=== PATIENT | male | born 1945 | race Caucasian/White ===

== ENCOUNTER 2023-08-02 14:05 | Outpatient (CLI) | payer OTHER, SELFPAY | END 2023-08-02 14:06 | disposition home or self-care (01) | LOC: AMB 08-03 18:45 | PROVIDERS: Visit Provider Emergency Medicine Emergency Medical Services | DX: L89.619 Pressure ulcer of right heel, unspecified stage (principal) | CPT/HCPCS: A0425; A0429 ==

== ENCOUNTER 2023-08-02 14:26 | Inpatient (IN) | payer OTHER, SELFPAY ==
[2023-08-02] VITALS (13 sets, daily range): BP systolic 108–136; BP diastolic 59–75; PULSE 64–83; RESP 16; TEMP 36.2–36.4; O2SAT 79–100; BMI 29.9
--- NOTE | 2023-08-02 17:27 | CRLHL7_ITS ---
For Patients: As a result of the Century Cures Act, medical imaging exams and procedure reports are released immediately into your electronic medical record. You may view this report before your referring provider. If you have questions, please contact your health care provider. Indication: Trauma. Technique: Right foot, 2 views. Comparison: None. Findings/Impression: Bones: Ill-defined lucency about the 5th digit metatarsal tarsal joint involving the metatarsal head and proximal phalangeal base, concerning for osteomyelitis. Joint spaces: Unremarkable. Soft tissues: Unremarkable. Dictated by Loco Zayas MD @ 08/02/2023 6:20:49 PM (Electronically Signed)
--- NOTE | 2023-08-02 17:35 | ED_ITS ---
HPI - General Adult General Date Seen: 08/02/23 Chief complaint: Laceration/Wound Stated complaint: Wound R foot Time Seen by Provider: 08/02/23 16:26 Source: EMS and other Mode of arrival: EMS Limitations: other (Dementia) History of Present Illness HPI narrative: Patient is a 77-year-old male with history of diabetes, CHF, hypertension, hypothyroidism, aphasia secondary to a cerebrovascular accident presenting to the emergency department for a diabetic foot ulcer. Patient was brought in by EMS. Patient is unable to give any clear history. When asked him what is wrong he says everything is fine. He does state he thinks is something wrong with this foot but can not give any further information than that. He was sent with a note from his provider josé miguel that they concerned about diabetic foot ulcer to his right foot and concern for osteomyelitis. He has been declining and due to living in assisted living the nursing staff are unable to complete skilled wound care and they cannot get home health care 10 mL to come in to provide wound management. He has also been refusing his showers. Was sent in for recommendation for evaluation of osteomyelitis and residential placement. Related Data Home Medications ?Medication ?Instructions ?Recorded ?Confirmed acetaminophen 500 mg tablet PO 08/02/23 allopurinol 100 mg tablet 100 mg PO DAILY 08/02/23 08/02/23 aspirin 81 mg chewable tablet 1 tab PO DAILY 08/02/23 08/02/23 atenolol 25 mg tablet 25 mg PO DAILY 08/02/23 08/02/23 baclofen 5 mg tablet 5 mg PO DAILY 08/02/23 08/02/23 blood sugar diagnostic (OneTouch 08/02/23 08/02/23 Ultra Test strips) gabapentin 100 mg capsule 200 mg PO BID 08/02/23 08/02/23 honey 80 % topical gel (MediHoney topical DIRECTED 08/02/23 (honey)) hydrocortisone 1 % topical cream applic topical 08/02/23 insulin glargine 100 unit/mL (3 2 unit subcut DAILY PRN 08/02/23 08/02/23 mL) subcutaneous pen (Lantus Solostar U-100 Insulin) lancets 28 gauge (Unistik 3 08/02/23 08/02/23 Comfort Lancet) levothyroxine 112 mcg tablet 112 mcg PO DAILY 12/26/23 12/26/23 metformin 500 mg tablet,extended 500 mg PO BID 08/02/23 08/02/23 release 24 hr non-adherent bandage 3 X 3 08/02/23 08/02/23 (Curity Non-Adhering Dressing) polyhexamethylene biguanide-gauze 08/02/23 08/02/23 bandage 0.2 %-4.5 X 4.1 yard (Kerlix AMD) simvastatin 10 mg tablet 10 mg PO QPM 08/02/23 08/02/23 Previous Rx's ?Medication ?Instructions ?Recorded Lactobacillus acidophilus 0.5 mg 1 mmu cells PO TIDWM 7 days #21 08/10/23 (100 million cell) tablet tabs acetaminophen 325 mg tablet 975 mg (3 x 325 mg) PO Q8H PRN #30 08/10/23 tabs ceftriaxone 2 gram solution for 2 g IVPB Q24H 7 days #10 ea 08/10/23 injection furosemide 40 mg tablet 40 mg PO DAILY #30 tabs 08/10/23 potassium chloride 10 mEq 20 meq (2 x 10 mEq) PO DAILY #30 08/10/23 capsule,extended release caps spironolactone 25 mg tablet 25 mg PO DAILY #30 tabs 08/10/23 Allergies Allergy/AdvReac Type Severity Reaction Status Date / Time Unable to Assess Allergy Unverified 08/02/23 14:38 Review of Systems Status of ROS: Reports: unobtainable due to mental status [facility] Medical History Hyperlipidemia ?E78.5 - Hyperlipidemia, unspecified (ICD-10) Peripheral edema ?R60.0 - Localized edema (ICD-10) Hypothyroidism ?E03.9 - Hypothyroidism, unspecified (ICD-10) Gout ?M10.9 - Gout, unspecified (ICD-10) 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 ?I69.351 - Hemiplegia and hemiparesis following cerebral infarction affecting right dominant side (ICD-10) GI bleed ?K92.2 - Gastrointestinal hemorrhage, unspecified (ICD-10) Type 2 diabetes mellitus ?E11.9 - Type 2 diabetes mellitus without complications (ICD-10) Chronic congestive heart failure ?I50.9 - Heart failure, unspecified (ICD-10) CVA (cerebral vascular accident) ?I63.9 - Cerebral infarction, unspecified (ICD-10) Hypertension ?I10 - Essential (primary) hypertension (ICD-10) Social History What is your current living situation?: I presently have a place to live Problems where you live: no known problems Problems where you live details: n/a In the past 12 months, utilities in danger of being shut off: no In past 12 months, lack of transportation kept you from medical appts, meetings, work, or getting things needed for daily living: no In the past 12 mos, have been you worried that your food would run out before you had money to buy more?: never true In the past 12 mos, the food you bought just didn't last and you didn't have money to buy more?: never true Smoking Status: Never smoker How often do you have a drink containing alcohol: never AUDIT-C Alcohol total score: 0 Non-prescribed substance use: denies use How often does anyone, including family, friends and others, physically hurt you : never How often does anyone, including family, friends and others, insult or talk down to you: never How often does anyone, including family, friends and others, threaten you with harm: never How often does anyone, including family, friends and others, scream or curse at you: never Exam Narrative: Exam Narrative: Const: Well-nourished, Well-developed, in mild distress Eyes: PERRL, no conjunctival injection, and symmetrical lids HENT: Atraumatic external nose and ears. Moist mucous membranes. Neck: Symmetric, trachea midline, No thyromegaly. CVS: RRR, No murmurs or gallops. Peripheral pulses 2+ and equal in all extremities RESP: Unlabored respiratory effort. Clear to auscultation bilaterally. GI: Nontender/Nondistended, No rebound or guarding. MSK:Extremities w/o deformity, Normal Active ROM FOOT: Left foot appears normal. Right foot has a diabetic foot ulcer at the ba se of the 5th meta tarsal appears deep. No surrounding erythema. Top of patient's foot is very swollen Skin: Warm, Dry. No rashes or lesions. Neuro: Normal Muscle tone, No focal neurological deficits. Psych: Awake, Alert, & Oriented to self only. Const: Vital Signs, click to edit/add: Vital Signs - 24 hr 08/02/23 14:35 08/02/23 17:59 08/02/23 18:00 Temperature 97.2 F L Pulse Rate 69 64 Pulse Rate [Pulse Oximeter] 83 Respiratory Rate 16 Blood Pressure Blood Pressure [Le ft Upper Arm] 113/59 L Pulse Oximetry 99 97 97 Oxygen Delivery Me thod Room Air 08/02/23 18:07 08/02/23 18:21 08/02/23 18:32 Temperature Pulse Rate 65 67 Pulse Rate [Pulse Oximeter] Respiratory Rate Blood Pressure 132/75 113/63 Blood Pressure [Le ft Upper Arm] Pulse Oximetry 99 100 Oxygen Delivery Me thod 08/02/23 18:51 08/02/23 19:01 08/02/23 19:19 Temperature Pulse Rate 64 Pulse Rate [Pulse Oximeter] Respiratory Rate Blood Pressure 108/70 Blood Pressure [Le ft Upper Arm] Pulse Oximetry 79 L 97 Oxygen Delivery Me thod Course Vital Signs Vital signs: Initial Vital Signs Temperature 97.2 F L 08/02/23 14:35 Temperature Source Temporal Artery Scan 08/02/23 14:35 Pulse Rate 83 08/02/23 14:35 Respiratory Rate 16 08/02/23 14:35 Blood Pressure 113/59 L 08/02/23 14:35 Blood Pressure Mean 77 08/02/23 14:35 Blood Pressure Position Sitting 08/02/23 14:35 Pulse Oximetry 99 08/02/23 14:35 Oxygen Delivery Method Room Air 08/02/23 14:35 Vital Signs Temperature 97.2 F L 08/02/23 14:35 Pulse Rate 83 08/02/23 14:35 Respiratory Rate 16 08/02/23 14:35 Blood Pressure 113/59 L 08/02/23 14:35 Pulse Oximetry 99 08/02/23 14:35 Oxygen Delivery Method Room Air 08/02/23 14:35 Temperature 98 F 08/10/23 11:07 Pulse Rate 75 08/10/23 11:07 Respiratory Rate 16 08/10/23 11:07 Blood Pressure 119/59 L 08/10/23 11:07 Pulse Oximetry 92 08/10/23 07:00 Oxygen Delivery Method Room Air 08/10/23 07:00 Oxygen Flow Rate 0 08/08/23 19:14 Medications Administered Medications: Discontinued Medications Generic Name Dose Route Start Last Admin Trade Name Michelle PRN Reason Stop Dose Admin Acetaminophen 650 - 975 mg 08/02/23 21:26 08/10/23 07:52 Acetaminophen 325 Mg Tablet PO 975 mg Q6H PRN Administration Allopurinol 100 mg 08/03/23 09:00 08/10/23 07:52 Allopurinol 100 Mg Tablet PO 100 mg DAILY KEN Administration Aspirin 81 mg 08/03/23 09:00 08/10/23 07:52 Aspirin 81 Mg Tab.Chew PO 81 mg DAILY KEN Administration Atenolol 25 mg 08/03/23 09:00 08/10/23 07:52 Atenolol 25 Mg Tablet PO 25 mg DAILY KEN Administration Baclofen 5 mg 08/03/23 09:00 08/10/23 07:51 Baclofen 10 Mg Tablet PO 5 mg DAILY KEN Administration Bupivacaine HCl 20 ml 08/03/23 17:34 08/03/23 17:34 Bupivacaine 0.5% 30 Ml INJECTION 08/03/23 17:35 20 ml ONCE ONE Administration Enoxaparin Sodium 40 mg 08/03/23 21:00 08/08/23 20:30 Enoxaparin 40 Mg/0.4 Ml Inj SUBCUT 40 mg HS KEN Administration Enoxaparin Sodium 30 mg 08/09/23 21:00 08/09/23 20:31 Enoxaparin 30 Mg/0.3ml Inj SUBCUT 30 mg HS KEN Administration Furosemide 40 mg 08/03/23 09:00 08/10/23 07:54 Furosemide 40 Mg Tablet PO 40 mg BID@09,16 KEN Administration Gabapentin 200 mg 08/03/23 09:00 08/10/23 07:53 Gabapentin 100 Mg Capsule PO 200 mg BID KEN Administration Vancomycin HCl 1,750 mg/ 517.5 mls @ 258.75 mls/hr 08/02/23 19:35 08/03/23 03:43 Sodium Chloride IVPB 08/02/23 19:36 Infused ONCE ONE Infusion Protocol Piperacillin Sod/Tazobactam 100 mls @ 200 mls/hr 08/02/23 19:35 08/02/23 20:59 Sod 3.375 gm/ Sodium Chloride IVPB 08/02/23 19:36 Infused ONCE ONE Infusion Vancomycin HCl 1,000 mg/ 260 mls @ 256.25 mls/hr 08/03/23 10:00 08/09/23 10:18 Sodium Chloride IVPB Infused Q12H KEN Infusion Protocol Piperacillin Sod/Tazobactam 100 mls @ 200 mls/hr 08/03/23 02:00 08/09/23 10:18 Sod 3.375 gm/ Sodium Chloride IVPB Infused Q6H KEN Infusion Lactated Ringer's 1,000 mls @ 125 mls/hr 08/03/23 08:55 08/06/23 10:52 Lactated Ringers 1000 Ml IV Not Given .Q8H KEN Ceftriaxone Sodium 2 gm/ 100 mls @ 200 mls/hr 08/09/23 09:15 08/10/23 10:04 Sodium Chloride IVPB Infused Q24H KEN Infusion Insulin Aspart 0 unit 08/03/23 08:00 08/10/23 07:55 Insulin Aspart 100 Unit/Ml SUBCUT 2 unit TIDWM KEN Administration Protocol Lactobacillus Acidophilus 1 tab 08/06/23 18:00 08/10/23 07:51 Lactobacillus Acidophilus 1 Tablet PO 1 tab TIDWM KEN Administration Levothyroxine Sodium 112 mcg 08/03/23 06:00 08/10/23 05:38 Levothyroxine 112 Mcg Tablet PO 112 mcg DAILY@0600 KEN Administration Lisinopril 20 mg 08/03/23 09:00 08/06/23 08:39 Lisinopril 20 Mg Tablet PO 20 mg DAILY KEN Administration Lisinopril 5 mg 08/07/23 09:00 08/09/23 08:11 Lisinopril 5 Mg Tablet PO 5 mg DAILY KEN Administration Metformin HCl 500 mg 08/04/23 18:00 08/10/23 07:51 Metformin Er 500 Mg PO 500 mg BIDWM KEN Administration Polyethylene Glycol 17 gm 08/02/23 21:26 08/03/23 20:59 Polyethylene Glycol 3350 17 Gm Pack PO 17 gm DAILY PRN Administration Potassium Chloride 20 meq 08/03/23 08:00 08/10/23 07:51 Potassium Chloride 10 Meq Capsule Er PO 20 meq BIDWM KEN Administration Senna/Docusate Sodium 1 tab 08/03/23 21:00 08/10/23 07:53 Sennosides/Docusate Tablet PO 1 tab BID KEN Administration Simvastatin 10 mg 08/03/23 18:00 08/09/23 17:23 Simvastatin 10 Mg Tablet PO 10 mg QPM KEN Administration Sodium Chloride 5 ml 08/02/23 21:26 08/10/23 05:40 Sodium Chloride 0.9 % (Flush) 10 Ml Syringe IVF 5 ml .FLUSH PRN Administration Sodium Chloride 5 ml 08/03/23 09:00 08/10/23 09:15 Sodium Chloride 0.9 % (Flush) 10 Ml Syringe IVF 5 ml BID KEN Administration Sodium Chloride 250 ml 08/04/23 13:45 08/04/23 13:54 0.9 % Sodium Chloride 250 Ml IV 250 ml Q24H KEN Administration Spironolactone 25 mg 08/03/23 09:00 08/10/23 07:53 Spironolactone 25 Mg Tablet PO 25 mg BID KEN Administration Trimethoprim/Sulfamethoxazole 1 tab 08/05/23 10:10 08/09/23 08:11 Sulfamethoxazole-Tmp Ds 800mg/160mg Tablet PO 1 tab BID KEN Administration Medical Decision Making MDM Narrative Medical decision making narrative: Patient is a 77-year-old male presenting to emergency department for concern of osteomyelitis. He appears to have altered mental status to and head CT was ordered but patient is refusing at this time. He does not know where ear is over he lives. I did speak to nursing staff at his assisted living and she says based on the records she is reading he has no history of cognitive issues. I spoke to 2 separate daughters also. One, the lives out of state, states he has dementia any other states he is not having any cognitive issues so this time I have no idea what his true baseline mental status is. I will do a CBC, CMP, ESR, CRP to look for signs of osteomyelitis. X-rays of the foot ordered. CBC returned with a white count over 12. He does not meet other SIRS criteria but with the concern for osteomyelitis we will order a lactate. X-ray returned showing concerns for osteomyelitis. ESR and CRP are both elevated which is also increases the concern for osteomyelitis. He was started on vanco and Zosyn. Blood cultures were done. Urinalysis is pending. I did order head CT for his altered mental status but he is refusing would not let us do it. At this time seems his confusion is more likely related to the infection rather than any intracranial issue. Patient admitted to the [facility] list service Lab Data Labs: Lab Results 08/02/23 08/02/23 Range/Units 18:09 19:50 WBC 12.48 H (4.50-11.00) K/uL RBC 3.98 L (4.30-5.90) m/uL Hgb 11.2 L (13.5-17.5) gm/dL Hct 34.5 L (37.0-53.0) % MCV 87 (80-100) fL MCH 28 (26-34) pg MCHC 33 (32-36) gm/dL RDW Coeff of Josafat 14.6 (11.5-15.5) % Plt Count 459 H (140-440) K/uL Neut % (Auto) 64.8 (42.0-72.0) % Lymph % (Auto) 25.2 (20-44) % [place] % (Auto) 7.0 (0.0-11.0) % Eos % (Auto) 2.5 (0.0-7.0) % Baso % (Auto) 0.3 (0.0-3.0) % Neut # (Auto) 8.10 H (1.7-7.0) K/uL Lymph # (Auto) 3.10 H (0.90-2.90) K/uL [place] # (Auto) 0.90 (0.00-0.90) K/UL Eos # (Auto) 0.30 (0.00-0.50) K/uL Baso # (Auto) 0.00 (0.00-0.30) K/uL Abs Immat Gran (auto) 0.00 (0.00-0.30) K/uL Imm/Tot Granulo (auto) 0.2 % ESR 72 H (2-15) mm/hr Sodium 135 (135-149) mmol/L Potassium 4.3 (3.6-5.1) mmol/L Chloride 98 (96-114) mmol/L Carbon Dioxide 27 (20-32) mmol/L Anion Gap 10 (7-15) mEq/L BUN 35 H (7-30) mg/dL Creatinine 0.9 (0.5-1.5) mg/dL Estimated GFR 87 ml/min Glucose 161 H (60-115) mg/dL Lactate 1.7 (0.5-1.9) mmol/L Calcium 9.3 (8.4-10.6) mg/dL Total Bilirubin 0.6 (0.1-1.5) mg/dL AST 23 (12-35) U/L ALT 17 (4-50) U/L Alkaline Phosphatase 110 (40-150) U/L C-Reactive Protein 2.5 H (0.5-1.0) mg/dL Total Protein 8.0 (6.0-8.3) g/dL Albumin 4.5 (3.3-5.0) g/dL Imaging Data Foot x-ray: Radiologist's impression: Bones: Ill-defined lucency about the 5th digit metatarsal tarsal joint involving the metatarsal head and proximal phalangeal base, concerning for osteomyelitis. Joint spaces: Unremarkable. Soft tissues: Unremarkable. Dictated by Loco Zayas MD @ 08/02/2023 6:20:49 PM ECG Data Attestation: I personally reviewed and interpreted this ECG as follows: Prior ECG tracings: not available for review Interpretation: Sinus rhythm with a rate 67 beats per minute. Appears there is a first-degree AV block, rest of intervals appear normal. Left axis, no ST or T-wave abnormalities Discharge Plan Discharge Clinical Impression: Osteomyelitis Patient Disposition: Admitted As Inpatient Condition: Stable Activity Level: Activity as Tolerated Discharge Diet: Diabetic
[2023-08-02 18:19] LABS: Basophils Percent Auto 0.3 % (0.0-3.0); Eosinophils Percent Auto 2.5 % (0.0-7.0); Hematocrit 34.5 % (37.0-53.0); Hemoglobin* 11.2 gm/dL (13.5-17.5); Immature Granulocytes Pct Auto 0.2 %; Lymphocytes Percent Auto 25.2 % (20-44); Mean Corpuscular HGB Conc 33 gm/dL (32-36); Mean Corpuscular Hemoglobin 28 pg (26-34); Mean Corpuscular Volume 87 fL (80-100); Neutrophils Percent Auto 64.8 % (42.0-72.0); Platelet Count* 459 K/uL (140-440); RDW Coefficient of Variation % 14.6 % (11.5-15.5); Red Blood Count 3.98 m/uL (4.30-5.90); White Blood Count* 12.48 K/uL (4.50-11.00)
[2023-08-02 18:25] LABS: Slide Review Reflex No
[2023-08-02 18:50] LABS: Albumin* 4.5 g/dL (3.3-5.0); Chloride* 98 mmol/L (96-114)
[2023-08-02 18:51] LABS: Potassium* 4.3 mmol/L (3.6-5.1); Sodium* 135 mmol/L (135-149)
[2023-08-02 18:53] LABS: Creatinine* 0.9 mg/dL (0.5-1.5); Estimated Glomerular Filt Rate 87 ml/min
[2023-08-02 18:54] LABS: Alanine Aminotransferase* 17 U/L (4-50); Alkaline Phosphatase* 110 U/L (40-150); Anion Gap 10 mEq/L (7-15); Aspartate Amino Transferase* 23 U/L (12-35); Bilirubin Total* 0.6 mg/dL (0.1-1.5); Blood Urea Nitrogen* 35 mg/dL (7-30); Calcium* 9.3 mg/dL (8.4-10.6); Carbon Dioxide* 27 mmol/L (20-32); Glucose* 161 mg/dL (60-115)
[2023-08-02 18:57] LABS: C Reactive Protein* 2.5 mg/dL (0.5-1.0)
[2023-08-02 19:40] LABS: Erythrocyte SedimentationRate* 72 mm/hr (2-15)
[2023-08-02 19:55] LABS: Lactate Sepsis w/Reflex* 1.7 mmol/L (0.5-1.9)
--- NOTE | 2023-08-02 20:12 | ED.NURSE ---
report given to MS, pt to room 258 after Meds started
[2023-08-02] MEDS: PIPERACILLIN/TAZOBACTAM 3.375 GM in 0.9 % SODIUM CHLORIDE Mini-bag 100 ML IVPB (20:15)
--- NOTE | 2023-08-02 20:36 | PM.IMHP1 ---
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 As patient is confused, mostly answering with yes or no, history is obtained from ED provider. Patient was brought to the ED from his residence in Assisted Living where nursing staff reported to be unable to complete skilled wound cares for a diabetic foot ulcer. Patient is reported to be declining at this residence and has been refusing showers. ED provider spoke with 2 of his daughters, one of them (living in [place]) reporting significant, worsening dementia the other reporting patient to be sharp as a tack. Review of Systems Narrative: REVIEW OF SYSTEMS: Complete review of systems performed and negative unless otherwise stated in HPI or below. 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 ?I69.351 - Hemiplegia and hemiparesis following cerebral infarction affecting right dominant side (ICD-10) GI bleed ?K92.2 - Gastrointestinal hemorrhage, unspecified (ICD-10) Type 2 diabetes mellitus ?E11.9 - Type 2 diabetes mellitus without complications (ICD-10) Chronic congestive heart failure ?I50.9 - Heart failure, unspecified (ICD-10) CVA (cerebral vascular accident) ?I63.9 - Cerebral infarction, unspecified (ICD-10) Hypertension ?I10 - Essential (primary) hypertension (ICD-10) Social History Smoking Status: Never smoker How often do you have a drink containing alcohol: never AUDIT-C Alcohol total score: 0 Meds Home Medications and Allergies Home Medications Medication Instructions Recorded Confirmed Type acetaminophen 500 mg tablet PO 08/02/23 History allopurinol 100 mg tablet 100 mg PO DAILY 08/02/23 08/02/23 History aspirin 81 mg chewable tablet 1 tab PO DAILY 08/02/23 08/02/23 History atenolol 25 mg tablet 25 mg PO DAILY 08/02/23 08/02/23 History baclofen 5 mg tablet 5 mg PO DAILY 08/02/23 08/02/23 History blood sugar diagnostic (OneTouch 08/02/23 08/02/23 History Ultra Test strips) furosemide 20 mg tablet 40 mg PO BID 08/02/23 08/02/23 History gabapentin 100 mg capsule 200 mg PO BID 08/02/23 08/02/23 History honey 80 % topical gel ([facility] topical DIRECTED 08/02/23 History (honey)) hydrocortisone 1 % topical cream applic topical 08/02/23 History insulin glargine 100 unit/mL (3 2 unit subcut DAILY PRN 08/02/23 08/02/23 History mL) subcutaneous pen (Lantus Solostar U-100 Insulin) lancets 28 gauge (Unistik 3 08/02/23 08/02/23 History Comfort Lancet) levothyroxine 112 mcg tablet 112 mcg PO DAILY 08/02/23 08/02/23 History lisinopril 20 mg tablet 20 mg PO DAILY 08/02/23 08/02/23 History metformin 500 mg tablet,extended 500 mg PO BID 08/02/23 08/02/23 History release 24 hr non-adherent bandage 3 X 3 08/02/23 08/02/23 History (Curity Non-Adhering Dressing) polyhexamethylene biguanide-gauze 08/02/23 08/02/23 History bandage 0.2 %-4.5 X 4.1 yard (Kerlix AMD) potassium chloride 20 mEq 20 meq PO BID 08/02/23 08/02/23 History tablet,extended release(part/cryst) simvastatin 10 mg tablet 10 mg PO QPM 08/02/23 08/02/23 History spironolactone 25 mg tablet 25 mg PO BID 08/02/23 08/02/23 History Allergies Allergy/AdvReac Type Severity Reaction Status Date / Time Unable to Assess Allergy Unverified 08/02/23 14:38 Exam Narrative: Exam Narrative: PHYSICAL EXAM General: Pleasantly confused, mostly cooperative, redirectable, otherwise NAD HEENT: Normocephalic, atraumatic, sclera white, EOMI, oral mucosa moist Cardiovascular: RRR, S1S2. No pitting edema Pulmonary: CTA bilaterally without rhonchi, rales, expiratory wheezes. No dyspnea on room air Abdominal: Soft, nondistended, NTTP Neurological: Alert, pleasantly confused. Right upper extremity hemiplegic, able to flex right hip to slightly raise foot Extremities: Right lower extremity with vascular changes, erythema, wound plantar surface 5th metatarsal - wound packing removed, purulent, malodorous. Left lower extremity digits with overgrowth of skin, some blackness Skin: Warm, dry. Const: Vital Signs, click to edit/add: Vital Signs - 24 hr 08/02/23 14:35 08/02/23 17:59 08/02/23 18:00 Temperature 97.2 F L Pulse Rate 69 64 Pulse Rate [Pulse Oximeter] 83 Respiratory Rate 16 Blood Pressure Blood Pressure [Le ft Upper Arm] 113/59 L Pulse Oximetry 99 97 97 Oxygen Delivery Me thod Room Air 08/02/23 18:07 08/02/23 18:21 08/02/23 18:32 Temperature Pulse Rate 65 67 Pulse Rate [Pulse Oximeter] Respiratory Rate Blood Pressure 132/75 113/63 Blood Pressure [Le ft Upper Arm] Pulse Oximetry 99 100 Oxygen Delivery Me thod 08/02/23 18:51 08/02/23 19:01 08/02/23 19:19 Temperature Pulse Rate 64 Pulse Rate [Pulse Oximeter] Respiratory Rate Blood Pressure 108/70 Blood Pressure [Le ft Upper Arm] Pulse Oximetry 79 L 97 Oxygen Delivery [facility] - [facility]: Result Labs Labs: Short CBC 08/02/23 Range/Units 18:09 WBC 12.48 H (4.50-11.00) K/uL Hgb 11.2 L (13.5-17.5) gm/dL Hct 34.5 L (37.0-53.0) % Plt Count 459 H (140-440) K/uL BMP 08/02/23 18:09 Sodium 135 Potassium 4.3 Chloride 98 Carbon Dioxide 27 BUN 35 H Creatinine 0.9 Glucose 161 H Calcium 9.3 Liver Function 12/26/23 Range/Units 18:09 Total Bilirubin 0.6 (0.1-1.5) mg/dL AST 23 (12-35) U/L ALT 17 (4-50) U/L Alkaline Phosphatase 110 (40-150) U/L Albumin 4.5 (3.3-5.0) g/dL Imaging Right foot: Attestation: I have reviewed the pertinent imaging results. Radiologist's impression: Right foot, 2 views. Comparison: None. Findings/Impression: Bones: Ill-defined lucency about the 5th digit metatarsal tarsal joint involving the metatarsal head and proximal phalangeal base, concerning for osteomyelitis. Joint spaces: Unremarkable. Soft tissues: Unremarkable. Assessment and Plan Assessment and plan (1) Osteomyelitis: Problem comment: -afebrile, vitally stable, leukocytosis with left shift, lactate 1.7, ESR and CRP elevated, BC x2 pending, lucency 5th metatarsal joint suspicious for osteomyelitis -continue vancomycin and Zosyn as initiated in ED -wound culture obtained and ordered -wound cares, frequent positional changes, offloading -Podiatry consult (made NPO after midnight, SCDs pending possible surgical intervention, no enoxaparin 08/02) -ID consult -PT/OT consults -Packing And Shipping Clerk for discharge planning/placement needs. Reported that current residence unable to provide necessary cares Status: Acute (2) Type 2 diabetes mellitus: Problem comment: -insulin-dependent -most recent A1c 7.3 (July) -hold metformin. Home medication record shows glargine 2 units daily p.r.n. (will need to confirm this) -diabetic diet, glucose checks ACHS, insulin sliding scale Status: Chronic (3) Chronic congestive heart failure: Problem comment: -continue furosemide, potassium chloride, monitor for fluid overload. No maintenance fluids ordered Status: Chronic (4) Hypertension: Problem comment: -continue atenolol, lisinopril, spironolactone. 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 Per ED provider, daughter in [place] reports significant dementia, worsening, while a 2nd daughter reports he is as sharp as a tack. Residence staff reports noncompliance with cares at facility -could be worsened in setting of acute infection -refused head CT in ED. Consider re-attempting if no change or worsening. No new focal findings -UA ordered -monitor for delirium -OT for cognitive assessment when appropriate Status: Chronic Plan CODE: DNR/DNI as reviewed in POLST 2019 VTE PPX: SCDs on admission pending possible surgical intervention Disposition: Inpatient, expect > 2 midnights. Will need assistance from social organization professor in finding appropriate placement
[2023-08-02 23:20] LABS: Appearance Urine Clear (Clear); Bilirubin Urine Negative (Negative); Blood Urine Negative (Negative); Color Urine Yellow (Yellow); Glucose Urine Negative (Negative); Ketones Urine Negative (Negative); Leukocyte Esterase Urine Negative (Negative); Nitrite Urine Negative (Negative); Protein Urine Negative (Negative); Specific Gravity Urine 1.015 (1.000-1.030); Urobilinogen Urine 0.2 (0.2-1.0)
[2023-08-03] VITALS (20 sets, daily range): BP systolic 95–130; BP diastolic 58–84; PULSE 59–85; RESP 16–18; TEMP 36.1–36.8; O2SAT 94–99
[2023-08-03 00:24] LABS: Amorphous Sediment Urine Moderate
[2023-08-03] MEDS: PIPERACILLIN/TAZOBACTAM 3.375 GM in 0.9 % SODIUM CHLORIDE Mini-bag 100 ML IVPB ×4 (02:14→20:09)
[2023-08-03] MEDS: LEVOTHYROXINE 112 MCG TABLET PO (06:26)
[2023-08-03 06:59] LABS: Basophils Percent Auto 0.3 % (0.0-3.0); Eosinophils Percent Auto 1.9 % (0.0-7.0); Hematocrit 33.7 % (37.0-53.0); Hemoglobin* 10.7 gm/dL (13.5-17.5); Immature Granulocytes Pct Auto 0.2 %; Lymphocytes Percent Auto 18.4 % (20-44); Mean Corpuscular HGB Conc 32 gm/dL (32-36); Mean Corpuscular Hemoglobin 28 pg (26-34); Mean Corpuscular Volume 88 fL (80-100); Monocytes Percent Auto 6.4 % (0.0-11.0); Neutrophils Percent Auto 72.8 % (42.0-72.0); Platelet Count* 397 K/uL (140-440); RDW Coefficient of Variation % 14.6 % (11.5-15.5); Red Blood Count 3.85 m/uL (4.30-5.90); White Blood Count* 11.77 K/uL (4.50-11.00)
--- NOTE | 2023-08-03 06:59 | PC.NURSE ---
pleasantly confused, oriented to person. Pt has Delayed responses & difficulty with word finding. Continent of bowel and bladder, uses urinal with assistance. A x 2 pivot to BSC. Pills with applesauce. Limited ROM in right arm, Pt states he uses a cane to ambulate at home. ? Wound to right foot weeping purulent drainage, foul odor, wound Cultures sent to lab. NPO since midnight. Tele = 1st degree HB w/ BBB?
[2023-08-03 07:17] LABS: Slide Review Reflex No
[2023-08-03 07:32] LABS: INR 1.03 (0.91-1.10); Prothrombin Time 14.2 Seconds
[2023-08-03 07:48] LABS: Magnesium* 1.8 mg/dL (1.5-2.6)
[2023-08-03 07:51] LABS: C Reactive Protein* 2.2 mg/dL (0.5-1.0)
[2023-08-03 07:56] LABS: Erythrocyte SedimentationRate* 83 mm/hr (2-15)
[2023-08-03] MEDS: POTASSIUM CHLORIDE 10 MEQ CAPSULE ER 20 MEQ PO (09:27)
[2023-08-03] MEDS: LACTATED RINGERS 1000 ML 1,000 ML 125 ML IV (09:28)
[2023-08-03] MEDS: ASPIRIN 81 MG TAB.CHEW PO (09:28)
[2023-08-03] MEDS: allopurinoL 100 MG TABLET PO (09:28)
[2023-08-03] MEDS: atenoloL 25 MG TABLET PO (09:29)
[2023-08-03] MEDS: BACLOFEN 10 MG TABLET 5 MG PO (09:29)
[2023-08-03] MEDS: GABAPENTIN 100 MG CAPSULE 200 MG PO ×2 (09:30→20:59)
[2023-08-03] MEDS: FUROSEMIDE 40 MG TABLET PO ×2 (09:30→16:12)
[2023-08-03] MEDS: lisinopriL 20 MG TABLET PO (09:30)
[2023-08-03] MEDS: SPIRONOLACTONE 25 MG TABLET PO ×2 (09:31→20:59)
--- NOTE | 2023-08-03 12:10 | CRLHL7_ITS ---
For Patients: As a result of the Century Cures Act, medical imaging exams and procedure reports are released immediately into your electronic medical record. You may view this report before your referring provider. If you have questions, please contact your health care provider. INDICATION: Abdominal tenderness. TECHNIQUE: CT abdomen and pelvis acquired with 102 cc Isovue 370 IV contrast. COMPARISON: June 05, 2021. FINDINGS: Lower chest: Scattered atelectasis. Liver: Unremarkable. Normal in size and attenuation. No suspicious masses. Gallbladder and bile ducts: Mildly distended gallbladder with cholelithiasis. Pancreas: Unremarkable. No mass or inflammation. Spleen: Scattered splenic granulomas. Normal in size. No masses. Adrenal glands: Tiny bilateral adrenal nodules. Kidneys: Bilateral renal cysts. Additional hypodensities, too small to characterize no suspicious masses, stones, or hydronephrosis. GI tract: Moderate colonic stool burden. Normal in caliber. No sign of mass or inflammation. Normal appendix. Vasculature: Moderate aortoiliac arterial calcifications. Abdominal aorta is normal in caliber. Mesenteric arteries are patent. Lymph nodes: No lymphadenopathy. Peritoneum/Abdominal Wall: Unremarkable. No sign of mass or infiltration. No free air or significant free fluid. Pelvis: Prostatomegaly. Moderately distended bladder. Bones: Unremarkable for age. IMPRESSION: 1. No acute intra-abdominal/pelvic abnormality. 2. Mildly distended gallbladder with cholelithiasis, but without other CT evidence of acute cholecystitis. Recommend correlation with localized physical examination and laboratory values. 3. Moderate colonic stool burden. 4. Prostatomegaly. Please note that all CT scans at this facility use dose modulation, iterative reconstruction, and/or weight-based dosing when appropriate to reduce radiation dose to as low as reasonably achievable. Dictated by Loco Zayas MD @ 08/03/2023 1:48:16 PM (Electronically Signed)
--- NOTE | 2023-08-03 12:49 | PM.PODCN1 ---
HPI - Podiatry Data of Consult Date Seen: 08/03/23 Consult date: 08/03/23 Requesting physician: Jennifer Corona MD Primary care provider: Not a Local Provider Consult Narrative Reason for consult: Osteomyelitis right foot Narrative: Chris Puri is a 77 year old male who resides in assisted living admitted yesterday with worsening foot pain and wound. Pleasant gentleman with daughter present. He states he has been doing some standing on the foot but does not recall any significant walking. He has had difficulty with the foot since stroke. H and P reviewed. 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 As patient is confused, mostly answering with yes or no, history is obtained from ED provider. Patient was brought to the ED from his residence in Assisted Living where nursing staff reported to be unable to complete skilled wound cares for a diabetic foot ulcer. Patient is reported to be declining at this residence and has been refusing showers. 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 ?I69.351 - Hemiplegia and hemiparesis following cerebral infarction affecting right dominant side (ICD-10) GI bleed ?K92.2 - Gastrointestinal hemorrhage, unspecified (ICD-10) Type 2 diabetes mellitus ?E11.9 - Type 2 diabetes mellitus without complications (ICD-10) Chronic congestive heart failure ?I50.9 - Heart failure, unspecified (ICD-10) CVA (cerebral vascular accident) ?I63.9 - Cerebral infarction, unspecified (ICD-10) Hypertension ?I10 - Essential (primary) hypertension (ICD-10) Social History What is your current living situation?: I presently have a place to live Problems where you live: no known problems Problems where you live details: n/a In the past 12 months, utilities in danger of being shut off: no In past 12 months, lack of transportation kept you from medical appts, meetings, work, or getting things needed for daily living: no In the past 12 mos, have been you worried that your food would run out before you had money to buy more?: never true In the past 12 mos, the food you bought just didn't last and you didn't have money to buy more?: never true Smoking Status: Never smoker How often do you have a drink containing alcohol: never AUDIT-C Alcohol total score: 0 Non-prescribed substance use: denies use How often does anyone, including family, friends and others, physically hurt you: never How often does anyone, including family, friends and others, insult or talk down to you: never How often does anyone, including family, friends and others, threaten you with harm: never How often does anyone, including family, friends and others, scream or curse at you: never Exam Narrative: Exam Narrative: General: No distress resting comfortably. Vascular: Palpable dorsalis pedis and posterior tibial pulses. There are faint. Capillary fill time was 3 seconds all digits. Neuro: Insensate to light touch right lower extremity. Derm: Mild venous stasis changes to the right lower extremity. Mild edema. Chronic appearing erythema to the foot and lower leg. Open ulceration measuring 2 cm plantar 5th metatarsal head with exposed bone. There is extensive necrotic tissue and necrotic bone. No purulence. Wound does not probe down fascial tracks. Musculoskeletal: Right foot equinovarus position. Absent muscle strength with dorsiflexion and eversion. X-ray: Erosions and destruction of the 5th metatarsal head and proximal phalangeal base right foot. Consistent with osteomyelitis. Lab: ESR 83, CRP 2.2, WBC 11.77 with left shift Wound culture: Gram-positive cocci and Gram-negative rods Assessment: Osteomyelitis 5th metatarsal and 5th toe right foot, diabetic neuropathic ulceration with infection Plan: I reviewed the current situation with Chris and his daughter. Because of the severe infection of the bone I recommend surgical intervention this evening. We will proceed with incision draining of the foot with amputation of the 5th toe and partial resection of the 5th metatarsal. We may or may not close the wound depending on the appearance of the remaining tissue. I reviewed the procedure, recovery, expectations and potential complications. He is understanding and wishes to proceed with surgery. Const: Vital Signs, click to edit/add: Vital Signs - 24 hr 08/02/23 14:35 08/02/23 17:59 08/02/23 18:00 Temperature 97.2 F L Pulse Rate 69 64 Pulse Rate [Pulse Oximeter] 83 Respiratory Rate 16 Blood Pressure Blood Pressure [Le ft Arm] Blood Pressure [Le ft Upper Arm] 113/59 L Pulse Oximetry 99 97 97 Oxygen Delivery Me thod Room Air 08/02/23 18:07 08/02/23 18:21 08/02/23 18:32 Temperature Pulse Rate 65 67 Pulse Rate [Pulse Oximeter] Respiratory Rate Blood Pressure 132/75 113/63 Blood Pressure [Le ft Arm] Blood Pressure [Le ft Upper Arm] Pulse Oximetry 99 100 Oxygen Delivery Me thod 08/02/23 18:51 08/02/23 19:01 08/02/23 19:19 Temperature Pulse Rate 64 Pulse Rate [Pulse Oximeter] Respiratory Rate Blood Pressure 108/70 Blood Pressure [Le ft Arm] Blood Pressure [Le ft Upper Arm] Pulse Oximetry 79 L 97 Oxygen Delivery Me thod 08/02/23 21:28 08/02/23 21:37 08/02/23 21:37 Temperature 97.6 F Pulse Rate Pulse Rate [Pulse Oximeter] 68 Respiratory Rate 16 16 16 Blood Pressure Blood Pressure [Le ft Arm] 136/70 Blood Pressure [Le ft Upper Arm] Pulse Oximetry 99 99 99 Oxygen Delivery Me thod Room Air Room Air Room Air 08/02/23 22:00 08/02/23 23:00 08/03/23 02:49 Temperature 98 F Pulse Rate 71 Pulse Rate [Pulse Oximeter] 77 Respiratory Rate 16 18 Blood Pressure Blood Pressure [Le ft Arm] 130/84 Blood Pressure [Le ft Upper Arm] Pulse Oximetry 97 Oxygen Delivery Me thod Room Air 08/03/23 07:00 08/03/23 07:50 08/03/23 11:05 Temperature 98.2 F 98.3 F Pulse Rate Pulse Rate [Pulse Oximeter] 85 85 74 Respiratory Rate 18 18 18 Blood Pressure Blood Pressure [Le ft Arm] 121/73 109/66 Blood Pressure [Le ft Upper Arm] Pulse Oximetry 99 97 Oxygen Delivery Me thod Room Air Room Air 08/03/23 12:04 Temperature Pulse Rate 71 Pulse Rate [Pulse Oximeter] Respiratory Rate Blood Pressure Blood Pressure [Le ft Arm] Blood Pressure [Le ft Upper Arm] Pulse Oximetry Oxygen Delivery Me thod Nail Debridement Qualifies If: Qualifiers If:: A patient qualifies for nail debridement if they have: 1 class A finding (Q7) 2 class B findings (Q8) OR 1 class B & 2 class C findings in addition to a primary condition (Q9)
[2023-08-03 14:40] LABS: PCR FLU A Negative PCR FLU A (Negative); PCR FLU B Negative PCR FLU B (Negative); PCR RSV Negative PCR RSV (Negative)
[2023-08-03 14:47] LABS: SARS PCR* Negative SARS-CoV-2 (Negative)
--- NOTE | 2023-08-03 14:48 | P.IMPN_ITS ---
Progress Note: A&P Assessment and plan (1) Osteomyelitis: Problem details: -afebrile, vitally stable, leukocytosis with left shift, lactate 1.7, ESR and CRP elevated, BC x2 pending, lucency 5th metatarsal joint suspicious for osteomyelitis -continue vancomycin and Zosyn as initiated in ED -wound culture obtained and ordered -wound cares, frequent positional changes, offloading -Podiatry consult (made NPO after midnight, SCDs pending possible surgical intervention, no enoxaparin 08/02) -ID consult -PT/OT consults -Poultry Veterinarian for discharge planning/placement needs. Reported that current residence unable to provide necessary cares Status: Acute (2) Hypertension: Problem details: -continue atenolol, lisinopril, spironolactone. Creatinine 0.9 Status: Chronic (3) Chronic congestive heart failure: Problem details: -continue furosemide, potassium chloride, monitor for fluid overload. No m aintenance fluids ordered Status: Chronic (4) Type 2 diabetes mellitus: Problem details: -insulin-dependent -most recent A1c 7.3 (July) -hold metformin. Home medication record shows glargine 2 units daily p.r.n. 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 Per ED provider, daughter in [place] reports significant dementia, worsening, while a 2nd daughter reports he is as sharp as a tack. Residence staff reports noncompliance with cares at facility -could be worsened in setting of acute infection -refused head CT in ED. Consider re-attempting if no change or worsening. No new focal findings -UA ordered -monitor for delirium -OT for cognitive assessment when appropriate Status: Chronic (10) Abdominal tenderness: Problem details: CT abdomen is unremarkable except for presence of gallstones without obvious cholecystitis. Continue to monitor and reexamine. Obtain ultrasound and repeat LFTs if ongoing concern about cholecystitis Status: Acute Plan Patient is admitted to the hospital for surgical management of osteomyelitis in the foot along with antibiotics. Awaiting cultures. Consultation with Dr. Chandra. Plan is to go to the OR later today for amputation of the 5th ray and 5th toe on the right. Time Spent With Patient Total time spent: Total time spent today is 55 minutes, 40 minutes in coordination of care discussing with patient other providers ongoing management of osteomyelitis and diabetes and disability and cognitive impairment Subjective Date Seen: 08/03/23 Interval history: 77-year-old male with diabetes mellitus and prior stroke with right michael paresis admitted to the hospital with a draining wound on his right foot. Patient is unable to give significant history due to cognitive impairment. History is mostly obtained from the medical record. His daughter is present but also unable to give much additional history. Duration of the wound on the plantar surface of his right 5th MTP joint is unknown. Radiographically this appears to have significant degeneration of the bone in that area suggesting chronicity. Patient had a stroke at least 30 years ago causing right hemiparesis. Is a sequelae of that he has some internal rotation and inversion of that right foot. 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 In the emergency department radiographs show marked degenerative changes of the head of the 5th metatarsal at the MTP joint consistent with osteomyelitis and the plantar surface ulcer consistent with that as well. He was started on vancomycin and Zosyn. Wound cultures are pending. Exam Narrative: Exam Narrative: He is alert and appears in no distress he is not oriented to his circumstances. He intermittently answers questions appropriately a but other times struggles with both word-finding and also struggles with giving appropriate answers. Speech is fluent but with some trouble with word finding. Respirations are fernando r to auscultation. Cardiovascular: S1, S2, regular rate and rhythm. Abdomen: Bowel sounds are present. Abdomen is soft with diffuse abdominal tenderness. I come back 30 minutes later to reexamine him any continues to have diffuse abdominal tenderness. I palpate no mass there is no peritonitis. Extremities: He has flexion contractures of the right upper extremity with limited passive motion and no at active motion of his right upper extremity. Right lower extremity foot with some inversion and internal rotation of the foot. No marked erythema. Mild edema. Foot is warm to touch. There is a 2 cm diameter ulcer on the plantar surface of the 5th MTP which probes to bone. He reports he has poor sensation in that right foot. No marked surrounding erythema. Left lower extremity is relatively normal. Const: Vital Signs, click to edit/add: Vital Signs - 24 hr 08/02/23 17:59 08/02/23 18:00 08/02/23 18:07 Temperature Pulse Rate 69 64 65 Pulse Rate [Pulse Oximeter] Respiratory Rate Blood Pressure 132/75 Blood Pressure [Le ft Arm] Blood Pressure [Ri ght Arm] Pulse Oximetry 97 97 99 Oxygen Delivery Me thod Oxygen Flow Rate 08/02/23 18:21 08/02/23 18:32 08/02/23 18:51 Temperature Pulse Rate 67 Pulse Rate [Pulse Oximeter] Respiratory Rate Blood Pressure 113/63 Blood Pressure [Le ft Arm] Blood Pressure [Ri ght Arm] Pulse Oximetry 100 79 L Oxygen Delivery Me thod Oxygen Flow Rate 08/02/23 19:01 08/02/23 19:19 08/02/23 21:28 Temperature Pulse Rate 64 Pulse Rate [Pulse Oximeter] Respiratory Rate 16 Blood Pressure 108/70 Blood Pressure [Le ft Arm] Blood Pressure [Ri ght Arm] Pulse Oximetry 97 99 Oxygen Delivery Me thod Room Air Oxygen Flow Rate 08/02/23 21:37 08/02/23 21:37 08/02/23 22:00 Temperature 97.6 F Pulse Rate 71 Pulse Rate [Pulse Oximeter] 68 Respiratory Rate 16 16 Blood Pressure Blood Pressure [Le ft Arm] 136/70 Blood Pressure [Ri ght Arm] Pulse Oximetry 99 99 Oxygen Delivery Me thod Room Air Room Air Oxygen Flow Rate 08/02/23 23:00 08/03/23 02:49 08/03/23 07:00 Temperature 98 F Pulse Rate Pulse Rate [Pulse Oximeter] 77 85 Respiratory Rate 16 18 18 Blood Pressure Blood Pressure [Le ft Arm] 130/84 Blood Pressure [Ri ght Arm] Pulse Oximetry 97 Oxygen Delivery Me thod Room Air Oxygen Flow Rate 08/03/23 07:50 08/03/23 11:05 08/03/23 12:04 Temperature 98.2 F 98.3 F Pulse Rate 71 Pulse Rate [Pulse Oximeter] 85 74 Respiratory Rate 18 18 Blood Pressure Blood Pressure [Le ft Arm] 121/73 109/66 Blood Pressure [Ri ght Arm] Pulse Oximetry 99 97 Oxygen Delivery Me thod Room Air Room Air Oxygen Flow Rate 08/03/23 14:30 Temperature 97.1 F L Pulse Rate 75 Pulse Rate [Pulse Oximeter] Respiratory Rate 16 Blood Pressure Blood Pressure [Le ft Arm] Blood Pressure [Ri ght Arm] 95/61 Pulse Oximetry Oxygen Delivery Me thod Nasal Cannula Oxygen Flow Rate 3 Documenting provider has reviewed patient's vital signs: yes Labs Labs: Laboratory Results - last 24 hr 08/02/23 08/02/23 08/02/23 18:09 19:50 22:55 WBC 12.48 H RBC 3.98 L Hgb 11.2 L Hct 34.5 L MCV 87 MCH 28 MCHC 33 RDW Coeff of Josafat 14.6 Plt Count 459 H Neut % (Auto) 64.8 Lymph % (Auto) 25.2 [place] % (Auto) 7.0 Eos % (Auto) 2.5 Baso % (Auto) 0.3 Neut # (Auto) 8.10 H Lymph # (Auto) 3.10 H [place] # (Auto) 0.90 Eos # (Auto) 0.30 Baso # (Auto) 0.00 Abs Immat Gran (auto) 0.00 Imm/Tot Granulo (auto) 0.2 ESR 72 H INR Sodium 135 Potassium 4.3 Chloride 98 Carbon Dioxide 27 Anion Gap 10 BUN 35 H Creatinine 0.9 Estimated GFR 87 Glucose 161 H Lactate 1.7 Calcium 9.3 Magnesium Total Bilirubin 0.6 AST 23 ALT 17 Alkaline Phosphatase 110 C-Reactive Protein 2.5 H Total Protein 8.0 Albumin 4.5 TSH Urine Color Yellow Urine Appearance Clear Urine pH 7.0 Ur Specific [place] 1.015 Urine Protein Negative Urine Glucose (UA) Negative Urine Ketones Negative Urine Blood Negative Urine Nitrite Negative Urine Bilirubin Negative Urine Urobilinogen 0.2 Ur Leukocyte Esterase Negative Urine RBC 2-5 A Urine WBC 2-5 Ur Squamous Epith Cells None Amorphous Sediment Moderate A Urine Bacteria None SARS-CoV-2 (PCR) Influenza Type A (PCR) Influenza Type B (PCR) RSV (PCR) 08/03/23 08/03/23 05:46 13:50 WBC 11.77 H RBC 3.85 L Hgb 10.7 L Hct 33.7 L MCV 88 MCH 28 MCHC 32 RDW Coeff of Josafat 14.6 Plt Count 397 Neut % (Auto) 72.8 H Lymph % (Auto) 18.4 L [place] % (Auto) 6.4 Eos % (Auto) 1.9 Baso % (Auto) 0.3 Neut # (Auto) 8.60 H Lymph # (Auto) 2.20 [place] # (Auto) 0.80 Eos # (Auto) 0.20 Baso # (Auto) 0.00 Abs Immat Gran (auto) 0.00 Imm/Tot Granulo (auto) 0.2 ESR 83 H INR 1.03 Sodium Potassium Chloride Carbon Dioxide Anion Gap BUN Creatinine Estimated GFR Glucose Lactate Calcium Magnesium 1.8 Total Bilirubin AST ALT Alkaline Phosphatase C-Reactive Protein 2.2 H Total Protein Albumin TSH 1.300 Urine Color Urine Appearance Urine pH Ur Specific [place] Urine Protein Urine Glucose (UA) Urine Ketones Urine Blood Urine Nitrite Urine Bilirubin Urine Urobilinogen Ur Leukocyte Esterase Urine RBC Urine WBC Ur Squamous Epith Cells Amorphous Sediment Urine Bacteria SARS-CoV-2 (PCR) Negative SARS-CoV-2 Influenza Type A (PCR) Negative PCR FLU A Influenza Type B (PCR) Negative PCR FLU B RSV (PCR) Negative PCR RSV
--- NOTE | 2023-08-03 17:20 | P.PODPN_ITS ---
Podiatry-PN: Michael Subjective Time Seen by Provider: 17:20 Date Seen: 08/03/23 Interval history: [employer] spoke with daughter who is the guardian of the patient about potential complications of anesthesia. She requests that the DNI/DNR remain in place no matter what happens during surgery. I am comfortable she understands the implications. He will remain DNI/DNR during the surgery. Exam Const: Vital Signs, click to edit/add: Vital Signs - 24 hr 08/02/23 17:59 08/02/23 18:00 08/02/23 18:07 Temperature Pulse Rate 69 64 65 Pulse Rate [Pulse Oximeter] Respiratory Rate Blood Pressure 132/75 Blood Pressure [Le ft Arm] Blood Pressure [Ri ght Arm] Pulse Oximetry 97 97 99 Oxygen Delivery Me thod Oxygen Flow Rate 08/02/23 18:21 08/02/23 18:32 08/02/23 18:51 Temperature Pulse Rate 67 Pulse Rate [Pulse Oximeter] Respiratory Rate Blood Pressure 113/63 Blood Pressure [Le ft Arm] Blood Pressure [Ri ght Arm] Pulse Oximetry 100 79 L Oxygen Delivery Me thod Oxygen Flow Rate 08/02/23 19:01 08/02/23 19:19 08/02/23 21:28 Temperature Pulse Rate 64 Pulse Rate [Pulse Oximeter] Respiratory Rate 16 Blood Pressure 108/70 Blood Pressure [Le ft Arm] Blood Pressure [Ri ght Arm] Pulse Oximetry 97 99 Oxygen Delivery Me thod Room Air Oxygen Flow Rate 08/02/23 21:37 08/02/23 21:37 08/02/23 22:00 Temperature 97.6 F Pulse Rate 71 Pulse Rate [Pulse Oximeter] 68 Respiratory Rate 16 16 Blood Pressure Blood Pressure [Le ft Arm] 136/70 Blood Pressure [Ri ght Arm] Pulse Oximetry 99 99 Oxygen Delivery Me thod Room Air Room Air Oxygen Flow Rate 08/02/23 23:00 08/03/23 02:49 08/03/23 07:00 Temperature 98 F Pulse Rate Pulse Rate [Pulse Oximeter] 77 85 Respiratory Rate 16 18 18 Blood Pressure Blood Pressure [Le ft Arm] 130/84 Blood Pressure [Ri ght Arm] Pulse Oximetry 97 Oxygen Delivery Me thod Room Air Oxygen Flow Rate 08/03/23 07:50 08/03/23 11:05 08/03/23 12:04 Temperature 98.2 F 98.3 F Pulse Rate 71 Pulse Rate [Pulse Oximeter] 85 74 Respiratory Rate 18 18 Blood Pressure Blood Pressure [Le ft Arm] 121/73 109/66 Blood Pressure [Ri ght Arm] Pulse Oximetry 99 97 Oxygen Delivery Me thod Room Air Room Air Oxygen Flow Rate 08/03/23 14:30 08/03/23 15:00 08/03/23 16:16 Temperature 97.1 F L 98.0 F Pulse Rate 75 Pulse Rate [Pulse Oximeter] 64 64 Respiratory Rate 16 16 16 Blood Pressure Blood Pressure [Le ft Arm] 117/66 Blood Pressure [Ri ght Arm] 95/61 Pulse Oximetry 99 Oxygen Delivery Me thod Nasal Cannula Room Air Oxygen Flow Rate 3 08/03/23 16:28 Temperature Pulse Rate 75 Pulse Rate [Pulse Oximeter] Respiratory Rate Blood Pressure Blood Pressure [Le ft Arm] Blood Pressure [Ri ght Arm] Pulse Oximetry Oxygen Delivery Me thod Oxygen Flow Rate Podiatry-PN: Obj Labs Labs: Laboratory Results - last 24 hr 08/02/23 08/02/23 08/02/23 18:09 19:50 22:55 WBC 12.48 H RBC 3.98 L Hgb 11.2 L Hct 34.5 L MCV 87 MCH 28 MCHC 33 RDW Coeff of Josafat 14.6 Plt Count 459 H Neut % (Auto) 64.8 Lymph % (Auto) 25.2 [place] % (Auto) 7.0 Eos % (Auto) 2.5 Baso % (Auto) 0.3 Neut # (Auto) 8.10 H Lymph # (Auto) 3.10 H [place] # (Auto) 0.90 Eos # (Auto) 0.30 Baso # (Auto) 0.00 Abs Immat Gran (auto) 0.00 Imm/Tot Granulo (auto) 0.2 ESR 72 H INR Sodium 135 Potassium 4.3 Chloride 98 Carbon Dioxide 27 Anion Gap 10 BUN 35 H Creatinine 0.9 Estimated GFR 87 Glucose 161 H Lactate 1.7 Calcium 9.3 Magnesium Total Bilirubin 0.6 AST 23 ALT 17 Alkaline Phosphatase 110 C-Reactive Protein 2.5 H Total Protein 8.0 Albumin 4.5 TSH Urine Color Yellow Urine Appearance Clear Urine pH 7.0 Ur Specific [place] 1.015 Urine Protein Negative Urine Glucose (UA) Negative Urine Ketones Negative Urine Blood Negative Urine Nitrite Negative Urine Bilirubin Negative Urine Urobilinogen 0.2 Ur Leukocyte Esterase Negative Urine RBC 2-5 A Urine WBC 2-5 Ur Squamous Epith Cells None Amorphous Sediment Moderate A Urine Bacteria None SARS-CoV-2 (PCR) Influenza Type A (PCR) Influenza Type B (PCR) RSV (PCR) 08/03/23 08/03/23 05:46 13:50 WBC 11.77 H RBC 3.85 L Hgb 10.7 L Hct 33.7 L MCV 88 MCH 28 MCHC 32 RDW Coeff of Josafat 14.6 Plt Count 397 Neut % (Auto) 72.8 H Lymph % (Auto) 18.4 L [place] % (Auto) 6.4 Eos % (Auto) 1.9 Baso % (Auto) 0.3 Neut # (Auto) 8.60 H Lymph # (Auto) 2.20 [place] # (Auto) 0.80 Eos # (Auto) 0.20 Baso # (Auto) 0.00 Abs Immat Gran (auto) 0.00 Imm/Tot Granulo (auto) 0.2 ESR 83 H INR 1.03 Sodium Potassium Chloride Carbon Dioxide Anion Gap BUN Creatinine Estimated GFR Glucose Lactate Calcium Magnesium 1.8 Total Bilirubin AST ALT Alkaline Phosphatase C-Reactive Protein 2.2 H Total Protein Albumin TSH 1.300 Urine Color Urine Appearance Urine pH Ur Specific [place] Urine Protein Urine Glucose (UA) Urine Ketones Urine Blood Urine Nitrite Urine Bilirubin Urine Urobilinogen Ur Leukocyte Esterase Urine RBC Urine WBC Ur Squamous Epith Cells Amorphous Sediment Urine Bacteria SARS-CoV-2 (PCR) Negative SARS-CoV-2 Influenza Type A (PCR) Negative PCR FLU A Influenza Type B (PCR) Negative PCR FLU B RSV (PCR) Negative PCR RSV
[2023-08-03] MEDS: BUPIVACAINE 0.5% 30 ML 20 ML INJECTION (17:34)
--- NOTE | 2023-08-03 18:30 | PM.ONB ---
Brief Operative Note Date of procedure: 08/03/23 Pre-op diagnosis: Osteomyelitis 5th ray right foot Post-op diagnosis: same Anesthesia: MAC and local Surgeon: Bobo Chandra Estimated blood loss (mL): 5 Pathology: specimen obtained, sent to pathology Condition: stable Disposition: floor
--- NOTE | 2023-08-03 18:38 | W.ANESCHARGE ---
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
--- NOTE | 2023-08-03 19:37 | PC.NURSE ---
Shift note [id number]: Pt has had no verbal or nonverbal complaints of pain. Wound to bottom of R foot was evaluated by Dr. Chandra and pt was prepped for surgery continuing on NPO diet. IV fluids running per current orders in place. Dressing to R foot noted to be C/D/I before pt was taken to surgery. VSS and pt has been afebrile. Pt noted to be both continent and incontinent of bladder and has been using bedside urinal and bedpan for toileting this shift. Pt pivot transferred with assist of 2 using GB though was noted to be heavy pivot transfer. 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 He is unable to state his name and birthday when asked though when staff read his birthday and asked pt if this was his birthday he replied, ?Yes?. Daughter Cherelle gave consent for surgery due to patient?s baseline dementia/aphasia. Pt returned from surgery at 1830 and is tolerating ice chips.?VSS and afebrile since returning from surgery.
[2023-08-03] MEDS: ENOXAPARIN 40 MG/0.4 ML INJ SUBCUT (20:59)
[2023-08-03] MEDS: polyethylene glycoL 3350 17 GM PACK PO (20:59)
[2023-08-03] MEDS: SENNOSIDES/DOCUSATE TABLET 1 TAB PO (21:56)
[2023-08-03 21:57] LABS: Chloride* 103 mmol/L (96-114); Potassium* 3.8 mmol/L (3.6-5.1); Sodium* 135 mmol/L (135-149)
[2023-08-03 22:00] LABS: Anion Gap 9 mEq/L (7-15); Blood Urea Nitrogen* 18 mg/dL (7-30); Carbon Dioxide* 23 mmol/L (20-32); Creatinine* 0.8 mg/dL (0.5-1.5); Est. Creatinine Clearance* 61.85; Estimated Glomerular Filt Rate 90 ml/min; Glucose* 214 mg/dL (60-115)
[2023-08-03 22:01] LABS: Calcium* 8.8 mg/dL (8.4-10.6)
[2023-08-04] VITALS (11 sets, daily range): BP systolic 97–126; BP diastolic 53–80; PULSE 67–90; RESP 14–20; TEMP 36.6–37.7; O2SAT 94–97; BMI 30.5
[2023-08-04] MEDS: PIPERACILLIN/TAZOBACTAM 3.375 GM in 0.9 % SODIUM CHLORIDE Mini-bag 100 ML IVPB ×4 (02:12→20:17)
[2023-08-04] MEDS: LACTATED RINGERS 1000 ML 1,000 ML 125 ML IV ×3 (05:06→16:52)
--- NOTE | 2023-08-04 05:46 | PC.NURSE ---
End of shift report: Patient alert, unable to verify name or date of due to aphasia from prior stroke. Patient is able to answer simple yes/no questions and is able to point to things he needs. Denies any pain this shift. Dressing to right foot clean, dry and intact. Right lower extremity elevated on pillow. Ate small amount of soft foods, patient declined dinner tray but was agreeable to small snacks. Able to use call light appropriately. Patient was continent of bladder and bowel.
[2023-08-04] MEDS: LEVOTHYROXINE 112 MCG TABLET PO (06:06)
[2023-08-04 07:04] LABS: Basophils Absolute Auto 0.03 K/uL (0.00-0.30); Basophils Percent Auto 0.3 % (0.0-3.0); Eosinophils Absolute Auto 0.22 K/uL (0.00-0.50); Eosinophils Percent Auto 2.4 % (0.0-7.0); Hematocrit 34.8 % (37.0-53.0); Hemoglobin* 11.1 gm/dL (13.5-17.5); Immature Granulocytes Abs Auto 0.04 K/uL (0.00-0.30); Immature Granulocytes Pct Auto 0.4 %; Mean Corpuscular HGB Conc 32 gm/dL (32-36); Mean Corpuscular Hemoglobin 28 pg (26-34); Mean Corpuscular Volume 87 fL (80-100); Monocytes Percent Auto 7.1 % (0.0-11.0); Neutrophils Percent Auto 77.8 % (42.0-72.0); Platelet Count* 379 K/uL (140-440); RDW Coefficient of Variation % 14.7 % (11.5-15.5); Red Blood Count 3.98 m/uL (4.30-5.90); White Blood Count* 9.17 K/uL (4.50-11.00)
[2023-08-04 07:21] LABS: Chloride* 103 mmol/L (96-114); Potassium* 4.3 mmol/L (3.6-5.1); Sodium* 136 mmol/L (135-149)
[2023-08-04 07:23] LABS: Creatinine* 0.8 mg/dL (0.5-1.5); Est. Creatinine Clearance* 61.85; Estimated Glomerular Filt Rate 90 ml/min
[2023-08-04 07:24] LABS: Anion Gap 10 mEq/L (7-15); Blood Urea Nitrogen* 15 mg/dL (7-30); Calcium* 8.7 mg/dL (8.4-10.6); Carbon Dioxide* 23 mmol/L (20-32); Glucose* 147 mg/dL (60-115)
[2023-08-04 07:27] LABS: C Reactive Protein* 3.1 mg/dL (0.5-1.0)
[2023-08-04 07:37] LABS: Slide Review Reflex No
[2023-08-04] MEDS: POTASSIUM CHLORIDE 10 MEQ CAPSULE ER 20 MEQ PO ×2 (08:57→18:09)
[2023-08-04] MEDS: atenoloL 25 MG TABLET PO (09:01)
[2023-08-04] MEDS: allopurinoL 100 MG TABLET PO (09:01)
[2023-08-04] MEDS: ASPIRIN 81 MG TAB.CHEW PO (09:01)
[2023-08-04] MEDS: BACLOFEN 10 MG TABLET 5 MG PO (09:02)
[2023-08-04] MEDS: FUROSEMIDE 40 MG TABLET PO ×2 (09:03→16:30)
[2023-08-04] MEDS: lisinopriL 20 MG TABLET PO (09:03)
[2023-08-04] MEDS: GABAPENTIN 100 MG CAPSULE 200 MG PO ×2 (09:03→21:21)
[2023-08-04] MEDS: SPIRONOLACTONE 25 MG TABLET PO ×2 (09:04→21:22)
[2023-08-04] MEDS: INSULIN ASPART 100 UNIT/ML SUBCUT ×2 (11:50→18:05)
[2023-08-04] MEDS: 0.9 % SODIUM CHLORIDE 250 ml IV (13:54)
--- NOTE | 2023-08-04 14:07 | P.IMPN_ITS ---
Progress Note: A&P Assessment and plan (1) Osteomyelitis: Problem details: Status post right 5th ray amputation for osteomyelitis of the right 5th metatarsal performed by Dr. Chandra 08/03/2023 On vancomycin and Zosyn pending cultures and clinical course Nonweightbearing on right lower extremity. Right hemiparesis from prior stroke Likely need longterm home placement for rehab instead of returning to assisted living at [facility] Status: Acute (2) Hypertension: Problem details: -continue atenolol, lisinopril, spironolactone. Creatinine 0.9 Status: Chronic (3) Chronic congestive heart failure: Problem details: -continue furosemide, potassium chloride, monitor for fluid overload. No maintenance fluids ordered Status: Chronic (4) Type 2 diabetes mellitus: Problem details: -insulin-dependent -most recent A1c 7.3 (July) -hold metformin. Home medication record shows glargine 2 units daily p.r.n. 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 No apparent agitation. Ongoing assessment. Status: Chronic (10) Abdominal tenderness: Problem details: CT abdomen is unremarkable except for presence of gallstones without obvious cholecystitis. Continue to monitor and reexamine. Obtain ultrasound and repeat LFTs if ongoing concern about cholecystitis Status: Acute Plan Continue in hospital for IV antibiotics and wound care. Time Spent With Patient Total time spent: Total time spent today is 40 minutes, 30 minutes in coordination of care and discussing with other providers management of osteomyelitis and disposition Subjective Date Seen: 08/04/23 Interval history: 77-year-old male with diabetes mellitus and prior stroke with right michael paresis admitted to the hospital with a draining wound on his right foot. Patient is unable to give significant history due to cognitive impairment. History is mostly obtained from the medical record. His daughter is present but also unable to give much additional history. Duration of the wound on the plantar surface of his right 5th MTP joint is unknown. Radiographically this appears to have significant degeneration of the bone in that area suggesting chronicity. Patient had a stroke at least 30 years ago causing right hemiparesis. Is a sequelae of that he has some internal rotation and inversion of that right foot. 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 In the emergency department radiographs show marked degenerative changes of the head of the 5th metatarsal at the MTP joint consistent with osteomyelitis and the plantar surface ulcer consistent with that as well. He was started on vancomycin and Zosyn. Wound cultures are pending. Gram stain shows Gram- negative rods and Gram-positive cocci. Yesterday he underwent amputation of his right 5th ray and 5th toe. He reports no concerns today. He is not oriented to his circumstances. Does not recall having surgery or why he is in the hospital. He denies pain dyspnea nausea. Exam Narrative: Exam Narrative: He is alert pleasant and appears in no distress. Respirations are clear to auscultation. Cardiovascular: S1, S2, regular rate and rhythm. Abdomen: Bowel sounds active. Abdomen is soft with mild diffuse tenderness again noted today. No mass. Right lower extremity is wrapped in a bulky dressing. He has no sensation in his right lower leg Const: Vital Signs, click to edit/add: Vital Signs - 24 hr 08/03/23 14:30 08/03/23 15:00 08/03/23 16:16 Temperature 97.1 F L 98.0 F Pulse Rate 75 Pulse Rate [Pulse Oximeter] 64 64 Respiratory Rate 16 16 16 Blood Pressure [Le ft Arm] 117/66 Blood Pressure [Ri ght Arm] 95/61 Pulse Oximetry 99 Oxygen Delivery Me thod Nasal Cannula Room Air Oxygen Flow Rate 3 08/03/23 16:28 08/03/23 18:30 08/03/23 18:45 Temperature 97.1 F L 97.1 F L Pulse Rate 75 61 Pulse Rate [Pulse Oximeter] 59 L Respiratory Rate 16 16 Blood Pressure [Le ft Arm] Blood Pressure [Ri ght Arm] 105/58 L 120/64 Pulse Oximetry 99 Oxygen Delivery Me thod Room Air Room Air Oxygen Flow Rate 08/03/23 19:00 08/03/23 19:15 08/03/23 19:30 Temperature 97.2 F L 97.3 F L 97.5 F L Pulse Rate Pulse Rate [Pulse Oximeter] 72 60 62 Respiratory Rate 16 16 16 Blood Pressure [Le ft Arm] Blood Pressure [Ri ght Arm] 116/62 122/71 118/68 Pulse Oximetry 98 98 95 Oxygen Delivery Me thod Room Air Room Air Room Air Oxygen Flow Rate 3 08/03/23 20:00 08/03/23 20:30 08/03/23 21:30 Temperature 96.9 F L 97.8 F 97.1 F L Pulse Rate Pulse Rate [Pulse Oximeter] 63 69 66 Respiratory Rate 18 16 16 Blood Pressure [Le ft Arm] Blood Pressure [Ri ght Arm] 118/63 112/78 117/63 Pulse Oximetry 99 98 96 Oxygen Delivery Me thod Room Air Room Air Room Air Oxygen Flow Rate 08/03/23 22:30 08/03/23 23:00 08/03/23 23:00 Temperature 97.2 F L Pulse Rate 73 Pulse Rate [Pulse Oximeter] 69 75 Respiratory Rate 16 Blood Pressure [Le ft Arm] Blood Pressure [Ri ght Arm] 119/63 Pulse Oximetry 94 Oxygen Delivery Me thod Room Air Oxygen Flow Rate 08/03/23 23:30 08/04/23 00:30 08/04/23 03:00 Temperature 97.9 F 97.9 F 98.4 F Pulse Rate Pulse Rate [Pulse Oximeter] 75 80 70 Respiratory Rate 16 15 14 Blood Pressure [Le ft Arm] Blood Pressure [Ri ght Arm] 120/60 113/59 L 121/53 L Pulse Oximetry 96 97 94 Oxygen Delivery Me thod Room Air Room Air Room Air Oxygen Flow Rate 08/04/23 07:20 08/04/23 07:30 08/04/23 10:19 Temperature 99.4 F Pulse Rate 84 Pulse Rate [Pulse Oximeter] 83 83 Respiratory Rate 20 20 Blood Pressure [Le ft Arm] 117/66 Blood Pressure [Ri ght Arm] 115/66 Pulse Oximetry 95 Oxygen Delivery Me thod Room Air Oxygen Flow Rate 08/04/23 11:31 Temperature 97.9 F Pulse Rate Pulse Rate [Pulse Oximeter] 89 Respiratory Rate 16 Blood Pressure [Le ft Arm] Blood Pressure [Ri ght Arm] 126/80 Pulse Oximetry 97 Oxygen Delivery Me thod Room Air Oxygen Flow Rate Documenting provider has reviewed patient's vital signs: yes Labs Labs: Laboratory Results - last 24 hr 08/03/23 08/03/23 08/04/23 13:50 21:38 05:48 WBC 9.17 RBC 3.98 L Hgb 11.1 L Hct 34.8 L MCV 87 MCH 28 MCHC 32 RDW Coeff of Josafat 14.7 Plt Count 379 Neut % (Auto) 77.8 H Lymph % (Auto) 12.0 L [place] % (Auto) 7.1 Eos % (Auto) 2.4 Baso % (Auto) 0.3 Neut # (Auto) 7.10 H Lymph # (Auto) 1.10 [place] # (Auto) 0.70 Eos # (Auto) 0.22 Baso # (Auto) 0.03 Abs Immat Gran (auto) 0.04 Imm/Tot Granulo (auto) 0.4 Sodium 135 136 Potassium 3.8 4.3 Chloride 103 103 Carbon Dioxide 23 23 Anion Gap 9 10 BUN 18 15 Creatinine 0.8 0.8 Estimated Creat Clear 61.85 61.85 Estimated GFR 90 90 Glucose 214 H 147 H Calcium 8.8 8.7 C-Reactive Protein 3.1 H SARS-CoV-2 (PCR) Negative SARS-CoV-2 Influenza Type A (PCR) Negative PCR FLU A Influenza Type B (PCR) Negative PCR FLU B RSV (PCR) Negative PCR RSV
--- NOTE | 2023-08-04 14:33 | PC.SOCIAL ---
Addendum entered by CHELSEA Haney 08/04/23 14:59: Pt has a [facility] Professional Architect, Ivon Reyna, and her phone number is [phone]. Provided update on pt. Professional Architect will e-mail a list of [facility] preferred TCU list to this worker's e-mail. Informed that family is requesting [facility]. Professional Architect would like to be updated on discharge plans. Original Note: Discharge planning- Phone call to pt's daughter, Cherelle Perez, at [phone] to discuss discharge plans. Per therapy, recommendation is SNF for rehab. Pt is non-weight bearing status at this time. Discussed recommendations with pt's dtr. Pt's daughter informs that pt currently lives at [facility], but she was informed that they are not able to meet pt's needs with the wound care. Pt's daughter is hopeful that pt can go to [facility]. If pt is unable to go to [facility] pt's daughter informs that her next choices would be [place] or [place]. Pt's daughter is open to [place], but hopes a first choice would accept him. Provided contact information for social work if family should have any questions. Social work will keep family updated on discharge plans. E-mail to Miranda Vázquez in admissions at [facility] to see if they have openings. Miranda informs that they will have an opening on Tuesday and requests that this worker send a referral. Secure e-mailed referral to Miranda at [facility] so they can assess. Social work will follow up as needed.
--- NOTE | 2023-08-04 17:08 | PM.PROC ---
Procedure Note Date Seen: 08/03/23 Date of procedure: 08/03/23 Will [facility] bill your pro fee for this procedure?: No Pre-op diagnosis: Osteomyelitis 5th ray right foot Post-op diagnosis: same Procedure: 1. Partial 5th ray amputation with 2. Rotational flap closure right foot Procedure Description: Hemostasis: Ankle tourniquet 250 mm Hg Complications: None apparent Indication for surgery: Patient seen for inpatient consultation with osteomyelitis 5th ray. He has a diabetic ulceration with exposed bone and extensive necrosis. Surgical intervention is warranted. I reviewed the procedure with the patient and his daughter. I discussed the procedure, recovery, expectations potential complications. These include but not limited to: Poor wound healing, continued infection, potential need for future surgery, potential limb loss, potential loss of life. All questions answered and consent was obtained. Site marked. Procedure in detail: Patient brought the operating room placed supine position on operating table. IV sedation initiated. Local anesthetic injected into the right foot. He was prepped and draped in a sterile fashion. Standard time-out protocol followed. The right foot was exsanguinated the tourniquet inflated. Linear incision started proximal to the open wound on the lateral plantar 5th metatarsal. Incision started mostly lateral and then angled plantarly. One arm of the incision then went inferior to the open wound and the other more superior. The incisions converged distally and then brought up toward the plantar 5th toe. Incision then diverged again going dorsal and plantar around the base the toe. This allowed me to raise a large 5 cm x 3 cm flap dorsally the 5th toe was disarticulated at the 5th MPJ and removed in total. The necrotic metatarsal head was excised. Surrounding necrotic subcutaneous tissue excised. Fifth metatarsal shaft was exposed. Using a sagittal saw the distal 5th metatarsal shaft was transected and sent to pathology. A 2 mm clear margin was cut proximal and sent for pathology. Portions of the necrotic metatarsal head were sent for culture and sensitivity. All necrotic tissue from the wound was extensively debrided. Wound was thoroughly irrigated with normal sterile saline. A dorsally based flap was further raised. Tourniquet was released and all bleeding vessels cauterized. The flap was then rotated plantar and slightly proximal to cover the large 2 cm ulceration site. Multiple retention sutures with 3-0 nylon were used. The distal 5th toe amputation site was remodeled due to the rotation of the flap. This was closed with 3-0 nylon as well. Sterile dressing was applied. He was transferred from [place] to [facility] with vital signs stable and vascular status intact to right foot. continued IV antibiotics. He is nonweightbearing. Anesthesia: MAC and local Surgeon: Bobo CHAVEZ Estimated blood loss (mL): 5 Pathology: specimen obtained, sent to pathology Condition: stable Disposition: floor
--- NOTE | 2023-08-04 17:17 | W.PM.PODPN ---
Podiatry-PN: Subj Subjective Date Seen: 08/04/23 Interval history: 77-year-old male with diabetes mellitus and prior stroke with right michael paresis admitted to the hospital with a draining wound on his right foot. He was started on vancomycin and Zosyn. Wound cultures are pending. Gram stain shows Gram-negative rods and Gram-positive cocci. Yesterday he underwent amputation of his right 5th ray and 5th toe. He reports no concerns today. He is not oriented to his circumstances. Does not recall having surgery or why he is in the hospital. He denies pain dyspnea nausea. Exam Narrative: Exam Narrative: Dressing is clean dry and intact. Incision is healing well. There is no areas of dehiscence. No area of maceration. Sutures intact. No active bleeding. Erythema and edema are much improved. No tenderness with palpation. Assessment: Postop day one partial 5th ray resection with rotational flap closure, osteomyelitis 5th metatarsal right Plan: Continue IV antibiotics. Continue nonweightbearing. Sterile dressing change performed. Const: Vital Signs, click to edit/add: Vital Signs - 24 hr 08/03/23 18:30 08/03/23 18:45 08/03/23 19:00 Temperature 97.1 F L 97.1 F L 97.2 F L Pulse Rate 61 Pulse Rate [Pulse Oximeter] 59 L 72 Respiratory Rate 16 16 16 Blood Pressure [Le ft Arm] Blood Pressure [Ri ght Arm] 105/58 L 120/64 116/62 Pulse Oximetry 99 98 Oxygen Delivery Me thod Room Air Room Air Room Air Oxygen Flow Rate 3 08/03/23 19:15 08/03/23 19:30 08/03/23 20:00 Temperature 97.3 F L 97.5 F L 96.9 F L Pulse Rate Pulse Rate [Pulse Oximeter] 60 62 63 Respiratory Rate 16 16 18 Blood Pressure [Le ft Arm] Blood Pressure [Ri ght Arm] 122/71 118/68 118/63 Pulse Oximetry 98 95 99 Oxygen Delivery Me thod Room Air Room Air Room Air Oxygen Flow Rate 08/03/23 20:30 08/03/23 21:30 08/03/23 22:30 Temperature 97.8 F 97.1 F L 97.2 F L Pulse Rate Pulse Rate [Pulse Oximeter] 69 66 69 Respiratory Rate 16 16 16 Blood Pressure [Le ft Arm] Blood Pressure [Ri ght Arm] 112/78 117/63 119/63 Pulse Oximetry 98 96 94 Oxygen Delivery Me thod Room Air Room Air Room Air Oxygen Flow Rate 08/03/23 23:00 08/03/23 23:00 08/03/23 23:30 Temperature 97.9 F Pulse Rate 73 Pulse Rate [Pulse Oximeter] 75 75 Respiratory Rate 16 Blood Pressure [Le ft Arm] Blood Pressure [Ri ght Arm] 120/60 Pulse Oximetry 96 Oxygen Delivery Me thod Room Air Oxygen Flow Rate 08/04/23 00:30 08/04/23 03:00 08/04/23 07:20 Temperature 97.9 F 98.4 F 99.4 F Pulse Rate Pulse Rate [Pulse Oximeter] 80 70 83 Respiratory Rate 15 14 20 Blood Pressure [Le ft Arm] 117/66 Blood Pressure [Ri ght Arm] 113/59 L 121/53 L 115/66 Pulse Oximetry 97 94 95 Oxygen Delivery Me thod Room Air Room Air Room Air Oxygen Flow Rate 08/04/23 07:30 08/04/23 10:19 08/04/23 11:31 Temperature 97.9 F Pulse Rate 84 Pulse Rate [Pulse Oximeter] 83 89 Respiratory Rate 20 16 Blood Pressure [Le ft Arm] Blood Pressure [Ri ght Arm] 126/80 Pulse Oximetry 97 Oxygen Delivery Me thod Room Air Oxygen Flow Rate 08/04/23 15:00 08/04/23 15:00 08/04/23 15:17 Temperature 98.9 F Pulse Rate 85 Pulse Rate [Pulse Oximeter] 90 90 Respiratory Rate 18 18 Blood Pressure [Le ft Arm] Blood Pressure [Ri ght Arm] 121/66 Pulse Oximetry 96 Oxygen Delivery Me thod Room Air Oxygen Flow Rate Podiatry-PN: Obj Labs Labs: Laboratory Results - last 24 hr 08/03/23 08/04/23 21:38 05:48 WBC 9.17 RBC 3.98 L Hgb 11.1 L Hct 34.8 L MCV 87 MCH 28 MCHC 32 RDW Coeff of Josafat 14.7 Plt Count 379 Neut % (Auto) 77.8 H Lymph % (Auto) 12.0 L [place] % (Auto) 7.1 Eos % (Auto) 2.4 Baso % (Auto) 0.3 Neut # (Auto) 7.10 H Lymph # (Auto) 1.10 [place] # (Auto) 0.70 Eos # (Auto) 0.22 Baso # (Auto) 0.03 Abs Immat Gran (auto) 0.04 Imm/Tot Granulo (auto) 0.4 Sodium 135 136 Potassium 3.8 4.3 Chloride 103 103 Carbon Dioxide 23 23 Anion Gap 9 10 BUN 18 15 Creatinine 0.8 0.8 Estimated Creat Clear 61.85 61.85 Estimated GFR 90 90 Glucose 214 H 147 H Calcium 8.8 8.7 C-Reactive Protein 3.1 H
[2023-08-04] MEDS: METFORMIN ER 500 MG PO (18:09)
[2023-08-04] MEDS: SIMVASTATIN 10 MG TABLET PO (18:09)
--- NOTE | 2023-08-04 19:39 | PC.NURSE ---
Shift note [id number]: Pt remains alert & oriented to self and able to state ?Yes? when asked about date. Pt has been transferring with ceiling lift with nursing staff as he is NWB to RLE though PT is starting to use EZ stand with pt using block for RLE to prevent weight bearing to this extremity. VSS and pt has been afebrile. He takes medications whole with applesauce. Pt has been mostly continent of bladder though has also been incontinent of bladder.? Dr. Chandra completed wound care to R foot this evening. He did have slight discomfort to RLE this morning which was relieved with repositioning. He has otherwise been denying pain when asked. ?
[2023-08-04] MEDS: SENNOSIDES/DOCUSATE TABLET 1 TAB PO (21:21)
[2023-08-04] MEDS: SODIUM CHLORIDE 0.9 % (FLUSH) 10 ML SYRINGE 5 ML IVF (21:22)
[2023-08-04] MEDS: ENOXAPARIN 40 MG/0.4 ML INJ SUBCUT (21:22)
[2023-08-05] VITALS (10 sets, daily range): BP systolic 111–124; BP diastolic 54–66; PULSE 63–82; RESP 16–20; TEMP 36.4–37.4; O2SAT 94–97
[2023-08-05] MEDS: LACTATED RINGERS 1000 ML 1,000 ML 125 ML IV ×3 (02:24→18:38)
[2023-08-05] MEDS: PIPERACILLIN/TAZOBACTAM 3.375 GM in 0.9 % SODIUM CHLORIDE Mini-bag 100 ML IVPB ×2 (02:29→07:44)
[2023-08-05] MEDS: LEVOTHYROXINE 112 MCG TABLET PO (06:04)
[2023-08-05 06:46] LABS: Basophils Absolute Auto 0.02 K/uL (0.00-0.30); Basophils Percent Auto 0.2 % (0.0-3.0); Eosinophils Absolute Auto 0.21 K/uL (0.00-0.50); Eosinophils Percent Auto 2.1 % (0.0-7.0); Hematocrit 30.8 % (37.0-53.0); Hemoglobin* 9.9 gm/dL (13.5-17.5); Immature Granulocytes Abs Auto 0.02 K/uL (0.00-0.30); Immature Granulocytes Pct Auto 0.2 %; Lymphocytes Percent Auto 17.3 % (20-44); Mean Corpuscular HGB Conc 32 gm/dL (32-36); Mean Corpuscular Hemoglobin 28 pg (26-34); Mean Corpuscular Volume 87 fL (80-100); Monocytes Percent Auto 10.4 % (0.0-11.0); Neutrophils Absolute Auto 6.88 K/uL (1.7-7.0); Neutrophils Percent Auto 69.8 % (42.0-72.0); Platelet Count* 322 K/uL (140-440); RDW Coefficient of Variation % 14.7 % (11.5-15.5); Red Blood Count 3.54 m/uL (4.30-5.90); White Blood Count* 9.87 K/uL (4.50-11.00)
[2023-08-05 06:54] LABS: Slide Review Reflex No
[2023-08-05 07:00] LABS: C Reactive Protein* 7.6 mg/dL (0.5-1.0)
[2023-08-05 07:16] LABS: Chloride* 103 mmol/L (96-114); Sodium* 133 mmol/L (135-149)
[2023-08-05 07:17] LABS: Potassium* 3.5 mmol/L (3.6-5.1)
[2023-08-05 07:19] LABS: Creatinine* 0.8 mg/dL (0.5-1.5); Est. Creatinine Clearance* 61.85; Estimated Glomerular Filt Rate 90 ml/min
[2023-08-05 07:20] LABS: Anion Gap 7 mEq/L (7-15); Blood Urea Nitrogen* 14 mg/dL (7-30); Calcium* 8.4 mg/dL (8.4-10.6); Carbon Dioxide* 23 mmol/L (20-32); Glucose* 170 mg/dL (60-115)
--- NOTE | 2023-08-05 07:40 | PC.NURSE ---
Pt pleasant and cooperative. Aphasic can answer with yes and no. And did speak a few words. Meds whole wiht applesauce. Is inc at times. Turn and reposition q2.
[2023-08-05] MEDS: SODIUM CHLORIDE 0.9 % (FLUSH) 10 ML SYRINGE 5 ML IVF (07:43)
[2023-08-05] MEDS: POTASSIUM CHLORIDE 10 MEQ CAPSULE ER 20 MEQ PO ×2 (08:13→18:31)
[2023-08-05] MEDS: INSULIN ASPART 100 UNIT/ML SUBCUT ×3 (08:13→18:32)
[2023-08-05] MEDS: METFORMIN ER 500 MG PO ×2 (08:36→18:32)
[2023-08-05] MEDS: allopurinoL 100 MG TABLET PO (08:36)
[2023-08-05] MEDS: BACLOFEN 10 MG TABLET 5 MG PO (08:37)
[2023-08-05] MEDS: atenoloL 25 MG TABLET PO (08:37)
[2023-08-05] MEDS: ASPIRIN 81 MG TAB.CHEW PO (08:37)
[2023-08-05] MEDS: GABAPENTIN 100 MG CAPSULE 200 MG PO ×2 (08:38→20:17)
[2023-08-05] MEDS: lisinopriL 20 MG TABLET PO (08:38)
[2023-08-05] MEDS: FUROSEMIDE 40 MG TABLET PO ×2 (08:38→16:04)
[2023-08-05] MEDS: SPIRONOLACTONE 25 MG TABLET PO ×2 (08:39→20:18)
[2023-08-05] MEDS: SENNOSIDES/DOCUSATE TABLET 1 TAB PO ×2 (08:39→20:17)
[2023-08-05] MEDS: ACETAMINOPHEN 325 MG TABLET PO (13:19)
--- NOTE | 2023-08-05 15:08 | P.IMPN_ITS ---
Progress Note: A&P Assessment and plan (1) Osteomyelitis: Problem details: Status post right 5th ray amputation for osteomyelitis of the right 5th metatarsal performed by Dr. Chanrda 08/03/2023 Cultures growing pansensitive.Proteus mirabilis . I spoke with Infectious Disease doctor. If not needing treatment for ongoing osteomyelitis, if the surgery removed the infected bone, patient will be treated with 2 weeks of antibiotics. He recommended ceftriaxone 2 g IV daily for total of 2 weeks of treatment, to August 17 or Bactrim DS b.i.d. to August 17. Bactrim DS puts him at risk for hyperkalemia and acute kidney injury. Will monitor his basic metabolic panel over the weekend. If this goes well he can be discharged to a usp facility next week with twice weekly basic metabolic monitoring until antibiotics are done. Nonweightbearing on right lower extremity. Right hemiparesis from prior stroke Needs [facility]p home placement for rehab instead of returning to assisted living at [facility] Status: Acute (2) Hypertension: Problem details: -continue atenolol, lisinopril, spironolactone. Creatinine 0.9 Status: Chronic (3) Chronic congestive heart failure: Problem details: -continue furosemide, potassium chloride, monitor for fluid overload. No m aintenance fluids ordered Status: Chronic (4) Type 2 diabetes mellitus: Problem details: -insulin-dependent -most recent A1c 7.3 (July) -hold metformin. Home medication record shows glargine 2 units daily p.r.n. 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 No apparent agitation. Ongoing assessment. Status: Chronic (10) Abdominal tenderness: Problem details: CT abdomen is unremarkable except for presence of gallstones without obvious cholecystitis. Continue to monitor and reexamine. Obtain ultrasound and repeat LFTs if ongoing concern about cholecystitis Status: Acute Plan continue in hospital for treatment of diabetic foot infection. Treat with Bactrim DS. Infectious Disease doctor recommended not reducing the dose because it would give inadequate bone penetration. If he gets acute kidney injury or hyperkalemia from Bactrim DS he needs to be on ceftriaxone 2 g daily through August 17. Time Spent With Patient Total time spent: Total time spent today is 40 minutes, 30 minutes in coordination of care and discussing with other providers management of osteomyelitis Subjective Date Seen: 08/05/23 Interval history: 77-year-old male with diabetes mellitus and prior stroke with right michael paresis admitted to the hospital with a draining wound on his right foot. He was started on vancomycin and Zosyn. Wound cultures are pending. Gram stain shows Gram-negative rods and Gram-positive cocci. Yesterday he underwent amputation of his right 5th ray and 5th toe. Patient remains confused. He reports no concerns today. Exam Narrative: Exam Narrative: He is alert and pleasant. Right-sided hemiparesis and numbness persists unchanged. Respirations are clear to auscultation. Cardiovascular: S1, S2, regular rate and rhythm. No murmur gallop rub. Abdomen is soft without tenderness. Const: Vital Signs, click to edit/add: Vital Signs - 24 hr 08/04/23 15:17 08/04/23 19:00 08/04/23 23:00 Temperature 99.8 F H 99.7 F H Pulse Rate 85 Pulse Rate [Pulse Oximeter] 82 81 Respiratory Rate 20 20 Blood Pressure [Le ft Arm] Blood Pressure [Ri ght Arm] 100/55 L 97/55 L Pulse Oximetry 96 95 Oxygen Delivery Me thod Room Air Room Air 08/05/23 00:03 08/05/23 04:30 08/05/23 07:39 Temperature 97.5 F L 98.6 F Pulse Rate Pulse Rate [Pulse Oximeter] 82 74 66 Respiratory Rate 16 20 Blood Pressure [Le ft Arm] 118/65 Blood Pressure [Ri ght Arm] 111/54 L Pulse Oximetry 95 94 Oxygen Delivery Me thod Room Air Room Air 08/05/23 07:53 08/05/23 10:26 08/05/23 11:56 Temperature 98.0 F Pulse Rate 63 Pulse Rate [Pulse Oximeter] 66 63 Respiratory Rate 20 18 Blood Pressure [Le ft Arm] Blood Pressure [Ri ght Arm] 124/63 Pulse Oximetry 94 Oxygen Delivery Me thod Room Air Documenting provider has reviewed patient's vital signs: yes Labs Labs: Laboratory Results - last 24 hr 08/05/23 05:45 WBC 9.87 RBC 3.54 L Hgb 9.9 L Hct 30.8 L MCV 87 MCH 28 MCHC 32 RDW Coeff of Josafat 14.7 Plt Count 322 Neut % (Auto) 69.8 Lymph % (Auto) 17.3 L [place] % (Auto) 10.4 Eos % (Auto) 2.1 Baso % (Auto) 0.2 Neut # (Auto) 6.88 Lymph # (Auto) 1.70 [place] # (Auto) 1.00 H Eos # (Auto) 0.21 Baso # (Auto) 0.02 Abs Immat Gran (auto) 0.02 Imm/Tot Granulo (auto) 0.2 Sodium 133 L Potassium 3.5 L Chloride 103 Carbon Dioxide 23 Anion Gap 7 BUN 14 Creatinine 0.8 Estimated Creat Clear 61.85 Estimated GFR 90 Glucose 170 H Calcium 8.4 C-Reactive Protein 7.6 H
--- NOTE | 2023-08-05 15:25 | PC.NURSE ---
Shift note [id number]: Pt currently transferring with ceiling lift with nursing staff as he remains NWB to RLE. 5/10 throbbing pain noted to R foot this afternoon with PRN Tylenol administered which was effective upon reassessment. VSS and pt afebrile. Pt takes pills whole with applesauce. Pt remains on IV LR at 125 mL/hr though has transitioned to po antibiotic. Dressing/DIONNE wrap to RLE noted to be C/D/I. Pt alert & oriented to self at baseline though unable to state place, time or birthday when asked due to aphasia from past CVA and has baseline dementia noted. Pt able to answer ?yes? or ?no? questions when asked. He has R sided weakness at baseline due to past CVA. ?
--- NOTE | 2023-08-05 15:36 | PC.NURSE ---
[employer]er called [facility] to have Dr. Chandra paged to clarify ongoing wound care orders as pt has no current wound care orders in place.
--- NOTE | 2023-08-05 17:58 | P.PODPN_ITS ---
Podiatry-PN: Subj Subjective Date Seen: 08/05/23 Interval history: 77-year-old male seen bedside post op day #2. no complaints. remains confused but pleasant. denies pain. Exam Narrative: Exam Narrative: General: No distress Vascular: Nonpalpable pedal pulses right foot. Neuro: Diminished sensation right. Derm: Incision appears to be healing well. There are 2 small areas that appeared dysvascular with early cyanosis. Does not appear to be necrotic at this point. Edema is significantly improved. No active bleeding noted. Flaps appear viable with the exception of the 2 small areas of cyanosis. Musculoskeletal: No significant muscle strength right foot. Wound culture: Proteus Path: Metatarsal clear margin is still pending. Assessment: S/p partial 5th ray resection with rotational flap closure postop day 2, osteomyelitis 5th ray. Plan: Sterile dressing change today. Small area of cyanosis is concerning for dysvascular suture. He was slid down in the bed with foot against the end of the bed. this may cause increased pressure. Placing him in a cam boot could help with position. May also want to consider SULY segmental pressures to assess blood flow in the right limb. Antibiotics per Infectious Disease recommendations. Well-padded dressing change every other day. Const: Vital Signs, click to edit/add: Vital Signs - 24 hr 08/04/23 19:00 08/04/23 23:00 08/05/23 00:03 Temperature 99.8 F H 99.7 F H Pulse Rate Pulse Rate [Pulse Oximeter] 82 81 82 Respiratory Rate 20 20 Blood Pressure [Le ft Arm] Blood Pressure [Ri ght Arm] 100/55 L 97/55 L Pulse Oximetry 96 95 Oxygen Delivery Me thod Room Air Room Air 08/05/23 04:30 08/05/23 07:39 08/05/23 07:53 Temperature 97.5 F L 98.6 F Pulse Rate Pulse Rate [Pulse Oximeter] 74 66 66 Respiratory Rate 16 20 20 Blood Pressure [Le ft Arm] 118/65 Blood Pressure [Ri ght Arm] 111/54 L Pulse Oximetry 95 94 Oxygen Delivery Me thod Room Air Room Air 08/05/23 10:26 08/05/23 11:56 08/05/23 16:00 Temperature 98.0 F Pulse Rate 63 Pulse Rate [Pulse Oximeter] 63 63 Respiratory Rate 18 18 Blood Pressure [Le ft Arm] Blood Pressure [Ri ght Arm] 124/63 Pulse Oximetry 94 Oxygen Delivery Me thod Room Air 08/05/23 16:00 Temperature 99.3 F Pulse Rate Pulse Rate [Pulse Oximeter] 68 Respiratory Rate 18 Blood Pressure [Le ft Arm] Blood Pressure [Ri ght Arm] 122/60 Pulse Oximetry 96 Oxygen Delivery Me thod Room Air Podiatry-PN: Obj Labs Labs: Laboratory Results - last 24 hr 08/05/23 05:45 WBC 9.87 RBC 3.54 L Hgb 9.9 L Hct 30.8 L MCV 87 MCH 28 MCHC 32 RDW Coeff of Josafat 14.7 Plt Count 322 Neut % (Auto) 69.8 Lymph % (Auto) 17.3 L [place] % (Auto) 10.4 Eos % (Auto) 2.1 Baso % (Auto) 0.2 Neut # (Auto) 6.88 Lymph # (Auto) 1.70 [place] # (Auto) 1.00 H Eos # (Auto) 0.21 Baso # (Auto) 0.02 Abs Immat Gran (auto) 0.02 Imm/Tot Granulo (auto) 0.2 Sodium 133 L Potassium 3.5 L Chloride 103 Carbon Dioxide 23 Anion Gap 7 BUN 14 Creatinine 0.8 Estimated Creat Clear 61.85 Estimated GFR 90 Glucose 170 H Calcium 8.4 C-Reactive Protein 7.6 H
[2023-08-05] MEDS: SIMVASTATIN 10 MG TABLET PO (18:32)
[2023-08-05] MEDS: ENOXAPARIN 40 MG/0.4 ML INJ SUBCUT (20:16)
--- NOTE | 2023-08-05 22:09 | PC.NURSE ---
Shift note The pt has been pleasant and cooperative. The pt has had trouble finding the right works occasionally. Denied chest pain and short of breath; spo2 has been in the 90s in RA. LR has been running @ 125 ml/hr continuously. Dressing to the right heel has been clean, dry, and intact; The pt denied any pain or concerns to the right foot. Takes pill whole with apple sauce. The pt appeared without any acute distress.
[2023-08-06] VITALS (7 sets, daily range): BP systolic 114–144; BP diastolic 62–86; PULSE 65–93; RESP 16–20; TEMP 36.6–37.1; O2SAT 93–98
[2023-08-06] MEDS: LACTATED RINGERS 1000 ML 1,000 ML 125 ML IV (02:28)
[2023-08-06 05:21] LABS: Basophils Absolute Auto 0.03 K/uL (0.00-0.30); Basophils Percent Auto 0.3 % (0.0-3.0); Eosinophils Percent Auto 3.9 % (0.0-7.0); Hematocrit 30.2 % (37.0-53.0); Hemoglobin* 9.7 gm/dL (13.5-17.5); Mean Corpuscular HGB Conc 32 gm/dL (32-36); Mean Corpuscular Hemoglobin 28 pg (26-34); Mean Corpuscular Volume 87 fL (80-100); Monocytes Percent Auto 7.9 % (0.0-11.0); Neutrophils Absolute Auto 7.13 K/uL (1.7-7.0); Neutrophils Percent Auto 69.9 % (42.0-72.0); Platelet Count* 306 K/uL (140-440); RDW Coefficient of Variation % 14.6 % (11.5-15.5); Red Blood Count 3.48 m/uL (4.30-5.90); White Blood Count* 10.21 K/uL (4.50-11.00)
[2023-08-06 05:29] LABS: Slide Review Reflex No
[2023-08-06 05:42] LABS: Chloride* 102 mmol/L (96-114); Sodium* 135 mmol/L (135-149)
[2023-08-06 05:43] LABS: Potassium* 3.9 mmol/L (3.6-5.1)
[2023-08-06 05:45] LABS: Carbon Dioxide* 24 mmol/L (20-32); Creatinine* 0.7 mg/dL (0.5-1.5); Est. Creatinine Clearance* 61.85; Estimated Glomerular Filt Rate 94 ml/min
[2023-08-06 05:46] LABS: Blood Urea Nitrogen* 12 mg/dL (7-30); Calcium* 8.4 mg/dL (8.4-10.6); Glucose* 153 mg/dL (60-115)
[2023-08-06 05:56] LABS: Anion Gap 9 mEq/L (7-15)
[2023-08-06] MEDS: LEVOTHYROXINE 112 MCG TABLET PO (06:51)
--- NOTE | 2023-08-06 08:15 | PC.NURSE ---
Pt pleasant and cooperative. VSS Answers yes and no questions. Uses urinal but is also inc at time. Pills in applesauce. No stool over night. Used ceiling lift to try the commode. Pt didnt like it.
[2023-08-06] MEDS: INSULIN ASPART 100 UNIT/ML SUBCUT ×3 (08:37→18:06)
[2023-08-06] MEDS: BACLOFEN 10 MG TABLET 5 MG PO (08:38)
[2023-08-06] MEDS: METFORMIN ER 500 MG PO ×2 (08:38→18:06)
[2023-08-06] MEDS: GABAPENTIN 100 MG CAPSULE 200 MG PO ×2 (08:38→21:51)
[2023-08-06] MEDS: SPIRONOLACTONE 25 MG TABLET PO ×2 (08:39→21:54)
[2023-08-06] MEDS: SENNOSIDES/DOCUSATE TABLET 1 TAB PO (08:39)
[2023-08-06] MEDS: POTASSIUM CHLORIDE 10 MEQ CAPSULE ER 20 MEQ PO ×2 (08:39→18:06)
[2023-08-06] MEDS: allopurinoL 100 MG TABLET PO (08:39)
[2023-08-06] MEDS: ASPIRIN 81 MG TAB.CHEW PO (08:39)
[2023-08-06] MEDS: FUROSEMIDE 40 MG TABLET PO ×2 (08:39→15:43)
[2023-08-06] MEDS: atenoloL 25 MG TABLET PO (08:39)
[2023-08-06] MEDS: lisinopriL 20 MG TABLET PO (08:39)
--- NOTE | 2023-08-06 11:09 | P.IMPN_ITS ---
Progress Note: A&P Assessment and plan (1) Osteomyelitis: Problem details: - s/p 5th metatarsal amputation for osteomyelitis performed by Dr. Chandra 08/03/2023 - Cultures growing pansensitive.Proteus mirabilis - Dr. Arnold discussed with ID postoperatively, 2 weeks of abx recommended (2g IV Ceftriaxone daily vs Bactrim DS BID), therapy to be completed 08/17/2023 - currently on Bactrim, following renal function - continue to monitor BMP; if remains stable, can d/c to SNF next week with twice weekly basic metabolic monitoring until antibiotics are done - Non weightbearing on right lower extremity, R hemiparesis from prior stroke; will likely need SNF placement with rehab prior to returning to [facility] Status: Acute (2) Hypertension: Problem details: - lower BPs throughout stay (120s or less SBP) - continue atenolol, spironolactone, on 08/06, Lisinopril DECREASED from 20mg -->5mg Status: Chronic (3) Chronic congestive heart failure: Problem details: -continue furosemide, KCl, monitor for fluid overload Status: Chronic (4) Type 2 diabetes mellitus: Problem details: -insulin-dependent -most recent A1c 7.3 (July) -hold metformin. Home medication record shows glargine 2 units daily p.r.n. 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 He is 3 days post R 5th metatarsal amputation with Dr. Chandra of Podiatry. Foot is wrapped and pain controlled, per patient. He is on abx (plan discussed below in detail). Had a few episodes of diarrhea this morning, negative C-Diff. BG 173-214. No concerns for hospitalist team. Exam Narrative: Exam Narrative: GEN: Alert, nontoxic, notable evidence of cognitive impairment CV: RRR, No concerning murmurs R: LCTA bilaterally without concerning wheezing Ab: Soft and tolerates palpation Ext: Right foot is wrapped, great toe visible with normal capillary refill and ROM Neuro: Noted right-sided weakness, chronic from previous CVA Psych: Appropriate Const: Vital Signs, click to edit/add: Vital Signs - 24 hr 08/05/23 11:56 08/05/23 16:00 08/05/23 16:00 Temperature 98.0 F 99.3 F Pulse Rate Pulse Rate [Pulse Oximeter] 63 63 68 Respiratory Rate 18 18 18 Blood Pressure [Ri ght Arm] 124/63 122/60 Pulse Oximetry 94 96 Oxygen Delivery Me thod Room Air Room Air Oxygen Flow Rate 08/05/23 18:45 08/05/23 19:00 08/05/23 23:00 Temperature 98.1 F 98.2 F Pulse Rate 67 Pulse Rate [Pulse Oximeter] 67 69 Respiratory Rate 18 Blood Pressure [Ri ght Arm] 116/66 121/62 Pulse Oximetry 97 Oxygen Delivery Me thod Room Air Room Air Oxygen Flow Rate 0 08/06/23 03:00 08/06/23 07:15 08/06/23 08:25 Temperature 98 F Pulse Rate 65 Pulse Rate [Pulse Oximeter] Respiratory Rate 20 Blood Pressure [Ri ght Arm] 129/83 Pulse Oximetry 98 Oxygen Delivery Me thod Room Air Oxygen Flow Rate 08/06/23 08:27 Temperature 98.2 F Pulse Rate Pulse Rate [Pulse Oximeter] 67 Respiratory Rate 20 Blood Pressure [Ri ght Arm] 123/62 Pulse Oximetry 95 Oxygen Delivery Me thod Room Air Oxygen Flow Rate 0 Labs Labs: Laboratory Results - last 24 hr 08/06/23 04:55 WBC 10.21 RBC 3.48 L Hgb 9.7 L Hct 30.2 L MCV 87 MCH 28 MCHC 32 RDW Coeff of Josafat 14.6 Plt Count 306 Neut % (Auto) 69.9 Lymph % (Auto) 17.0 L [place] % (Auto) 7.9 Eos % (Auto) 3.9 Baso % (Auto) 0.3 Neut # (Auto) 7.13 H Lymph # (Auto) 1.70 [place] # (Auto) 0.80 Eos # (Auto) 0.40 Baso # (Auto) 0.03 Abs Immat Gran (auto) 0.10 Imm/Tot Granulo (auto) 1.0 Sodium 135 Potassium 3.9 Chloride 102 Carbon Dioxide 24 Anion Gap 9 BUN 12 Creatinine 0.7 Estimated Creat Clear 61.85 Estimated GFR 94 Glucose 153 H Calcium 8.4
[2023-08-06 12:33] LABS: C.Difficile Negative (Negative); CDIFFEPI 027 PRESUMPTIVE NEGATIVE (Negative)
[2023-08-06] MEDS: SIMVASTATIN 10 MG TABLET PO (18:06)
[2023-08-06] MEDS: LACTOBACILLUS ACIDOPHILUS 1 TABLET 1 TAB PO (18:06)
--- NOTE | 2023-08-06 18:15 | PC.NURSE ---
Shift Summary: Patient pleasant and cooperative, T&R q2h, right leg elevated on 1-2 pillows/ pillow between legs when side lying. Vitals stable and WNL. Up to chair with ceiling lift. Using call light appropriately. x2 liquid stool, using bed foster, new order for c-diff sample done. Tolerating regular diet well. Denies pain or nausea, states some discomfort when right leg is elevated on two pillows and right hip pain when patient is in chair for >1hr, denies need for medication.
[2023-08-06] MEDS: ENOXAPARIN 40 MG/0.4 ML INJ SUBCUT (21:52)
[2023-08-06] MEDS: SODIUM CHLORIDE 0.9 % (FLUSH) 10 ML SYRINGE 5 ML IVF (21:53)
[2023-08-06 22:16] LABS: Chloride* 99 mmol/L (96-114); Potassium* 3.9 mmol/L (3.6-5.1); Sodium* 133 mmol/L (135-149)
[2023-08-06 22:19] LABS: Anion Gap 10 mEq/L (7-15); Blood Urea Nitrogen* 15 mg/dL (7-30); Carbon Dioxide* 24 mmol/L (20-32); Creatinine* 0.9 mg/dL (0.5-1.5); Est. Creatinine Clearance* 61.85; Estimated Glomerular Filt Rate 87 ml/min
[2023-08-06 22:20] LABS: Calcium* 8.7 mg/dL (8.4-10.6); Glucose* 198 mg/dL (60-115)
[2023-08-07 03:00] VITALS: BP 122/59; PULSE 68; RESP 18; TEMP 36.6; O2SAT 95
[2023-08-07] MEDS: LEVOTHYROXINE 112 MCG TABLET PO (06:36)
[2023-08-07 06:51] LABS: Basophils Absolute Auto 0.02 K/uL (0.00-0.30); Basophils Percent Auto 0.2 % (0.0-3.0); Eosinophils Percent Auto 4.1 % (0.0-7.0); Hematocrit 32.4 % (37.0-53.0); Hemoglobin* 10.5 gm/dL (13.5-17.5); Immature Granulocytes Abs Auto 0.02 K/uL (0.00-0.30); Immature Granulocytes Pct Auto 0.2 %; Lymphocytes Absolute Auto 1.97 K/uL (0.90-2.90); Lymphocytes Percent Auto 20.2 % (20-44); Mean Corpuscular HGB Conc 32 gm/dL (32-36); Mean Corpuscular Hemoglobin 28 pg (26-34); Mean Corpuscular Volume 86 fL (80-100); Monocytes Percent Auto 9.5 % (0.0-11.0); Neutrophils Percent Auto 65.8 % (42.0-72.0); Platelet Count* 347 K/uL (140-440); RDW Coefficient of Variation % 14.4 % (11.5-15.5); Red Blood Count 3.75 m/uL (4.30-5.90); White Blood Count* 9.73 K/uL (4.50-11.00)
[2023-08-07 06:59] LABS: Slide Review Reflex No
[2023-08-07 07:00] VITALS: BP 111/69; PULSE 68; RESP 16; TEMP 36.8; O2SAT 92
[2023-08-07 07:18] LABS: Chloride* 101 mmol/L (96-114); Potassium* 3.8 mmol/L (3.6-5.1); Sodium* 135 mmol/L (135-149)
[2023-08-07 07:20] LABS: Creatinine* 0.9 mg/dL (0.5-1.5); Est. Creatinine Clearance* 61.85; Estimated Glomerular Filt Rate 87 ml/min
[2023-08-07 07:21] LABS: Anion Gap 10 mEq/L (7-15); Blood Urea Nitrogen* 15 mg/dL (7-30); Calcium* 8.6 mg/dL (8.4-10.6); Carbon Dioxide* 24 mmol/L (20-32); Glucose* 161 mg/dL (60-115)
[2023-08-07] MEDS: INSULIN ASPART 100 UNIT/ML SUBCUT ×2 (08:18→16:48)
[2023-08-07] MEDS: FUROSEMIDE 40 MG TABLET PO ×2 (08:19→15:51)
[2023-08-07] MEDS: GABAPENTIN 100 MG CAPSULE 200 MG PO ×2 (08:19→20:29)
[2023-08-07] MEDS: POTASSIUM CHLORIDE 10 MEQ CAPSULE ER 20 MEQ PO ×2 (08:19→17:27)
[2023-08-07] MEDS: LACTOBACILLUS ACIDOPHILUS 1 TABLET 1 TAB PO ×2 (08:19→17:26)
[2023-08-07] MEDS: lisinopriL 5 MG TABLET PO (08:20)
[2023-08-07] MEDS: allopurinoL 100 MG TABLET PO (08:20)
[2023-08-07] MEDS: BACLOFEN 10 MG TABLET 5 MG PO (08:20)
[2023-08-07] MEDS: ASPIRIN 81 MG TAB.CHEW PO (08:20)
[2023-08-07] MEDS: atenoloL 25 MG TABLET PO (08:20)
[2023-08-07] MEDS: SPIRONOLACTONE 25 MG TABLET PO ×2 (08:20→20:30)
[2023-08-07] MEDS: METFORMIN ER 500 MG PO ×2 (08:20→17:26)
[2023-08-07] MEDS: SODIUM CHLORIDE 0.9 % (FLUSH) 10 ML SYRINGE 5 ML IVF ×2 (08:21→20:30)
--- NOTE | 2023-08-07 10:20 | P.IMPN_ITS ---
Progress Note: A&P Assessment and plan (1) Osteomyelitis: Problem details: - s/p 5th metatarsal amputation for osteomyelitis performed by Dr. Chandra 08/03/2023 - Wound cultures growing pansensitive Proteus mirabilis, BCx negative - Dr. Arnold discussed with ID postoperatively, 2 weeks of abx recommended (2g IV Ceftriaxone daily vs Bactrim DS BID), therapy to be completed 08/17/2023 - currently on Bactrim, following renal function - continue to monitor BMP; if remains stable, can d/c to SNF next week with twice weekly basic metabolic monitoring until antibiotics are done - Non weightbearing on right lower extremity, R hemiparesis from prior stroke; will likely need SNF placement with rehab prior to returning to [facility] - postoperative wound care per Podiatry Status: Acute (2) Hypertension: Problem details: - lower BPs throughout stay (120s or less SBP) - continue atenolol, spironolactone, on 08/06, Lisinopril DECREASED from 20mg -->5mg Status: Chronic (3) Chronic congestive heart failure: Problem details: -continue furosemide, KCl, monitor for fluid overload Status: Chronic (4) Type 2 diabetes mellitus: Problem details: -insulin-dependent -most recent A1c 7.3 (July) -hold metformin. Home medication record shows glargine 2 units daily p.r.n. (will need to confirm this) -diabetic diet, glucose checks ACHS, insulin sliding scale Status: Chronic (5) Hypothyroidism: Problem details: -continue levothyroxine, TSH wnl Status: Chronic (6) Hyperlipidemia: Problem details: -continue statin Status: Chronic (7) 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: Problem details: -likely complicating wounds -PT/OT consults Status: Chronic (8) Peripheral edema: Problem details: -continue furosemide Status: Chronic Plan - per above - Lovenox for ppx Subjective Date Seen: 08/07/23 Interval history: Tucker was admitted on 08/02 for osteomyelitis of his R 5th toe. On 08/03, he had a successful R 5th metatarsal amputation with Dr. Chandra of Podiatry. He is on Bactrim DS at this time - will be on antibiotics until August 17. Diarrhea from yesterday has improved (negative C-diff). BG 155-231. No concerns for hospitalist team today. Exam Narrative: Exam Narrative: GEN: Alert and laying comfortably in bed, expressive aphasia noted, specifically states no when asked about concerns HEENT: EOMIs bilaterally, no scleral icterus CV: RRR, No concerning murmurs R: No tachypnea, no wheezing Ext: Hyperpigmentation of right ponce c/w PVD, right foot is wrapped. Great toe exposed with normal sensation, capillary refill, ROM Skin: No other concerning skin lesions or rashes on exposed skin Neuro: Right-sided weakness and aphasia, baseline per CVA history Psych: Appropriate Const: Vital Signs, click to edit/add: Vital Signs - 24 hr 08/06/23 11:29 08/06/23 15:00 08/06/23 19:00 Temperature 98.3 F 98.4 F 98.8 F Pulse Rate [Pulse Oximeter] 67 93 90 Respiratory Rate 16 18 18 Blood Pressure [Le ft Arm] 114/86 144/69 H Blood Pressure [Ri ght Arm] 126/64 Pulse Oximetry 93 94 95 Oxygen Delivery Me thod Room Air Room Air Room Air Oxygen Flow Rate 0 08/07/23 03:00 08/07/23 07:00 Temperature 98 F 98.2 F Pulse Rate [Pulse Oximeter] 68 68 Respiratory Rate 18 16 Blood Pressure [Le ft Arm] 111/69 Blood Pressure [Ri ght Arm] 122/59 L Pulse Oximetry 95 92 Oxygen Delivery Me thod Room Air Room Air Oxygen Flow Rate Labs Labs: Laboratory Results - last 24 hr 08/06/23 08/06/23 08/07/23 11:03 21:55 05:40 WBC 9.73 RBC 3.75 L Hgb 10.5 L Hct 32.4 L MCV 86 MCH 28 MCHC 32 RDW Coeff of Josafat 14.4 Plt Count 347 Neut % (Auto) 65.8 Lymph % (Auto) 20.2 [place] % (Auto) 9.5 Eos % (Auto) 4.1 Baso % (Auto) 0.2 Neut # (Auto) 6.40 Lymph # (Auto) 1.97 [place] # (Auto) 0.90 Eos # (Auto) 0.40 Baso # (Auto) 0.02 Abs Immat Gran (auto) 0.02 Imm/Tot Granulo (auto) 0.2 Sodium 133 L 135 Potassium 3.9 3.8 Chloride 99 101 Carbon Dioxide 24 24 Anion Gap 10 10 BUN 15 15 Creatinine 0.9 0.9 Estimated Creat Clear 61.85 61.85 Estimated GFR 87 87 Glucose 198 H 161 H Calcium 8.7 8.6 Stl C. diff Tox B Gene Negative Stl C. diff [id number] PRESUMPTIVE NEGATIVE
[2023-08-07] MEDS: ACETAMINOPHEN 325 MG TABLET PO ×2 (10:57→17:30)
[2023-08-07 11:00] VITALS: BP 102/56; PULSE 64; RESP 16; TEMP 36.1; O2SAT 97
--- NOTE | 2023-08-07 14:12 | PC.NURSE ---
[id number] Upon AM assessment the patient is alert to self and place only. Expressive aphasia. R sided hemiplegia from past infarct...although he is able to slightly help lift his r arm and r leg up. Up to the chair for breakfast and until 1400, then the patient requested to go back to bed. The patient reported mild burning in his R foot late this morning.. PRN tylenol was given with adequate relief. Non weight bearing on R lower extremity due to amputation. Tolerating the ceiling lift well for transferring. R foot dressing change q48 hrs. R foot has about 4in of stitches on outside of his foot due to 5th toe amputation, with a scant amount of serosanguineous drainage present. Dry dressing change- 4x4, then ABD, krelix, and then DIONNE wrap to keep it padded per orders. The patient tolerated this well with no complaint of pain. Elevated the RLE and RUE throughout the day on pillows. Q2 reposition when he is in bed. Incontinent/ continent of urine. 1 large continent stool this afternoon. Call light within reach, and bed alarm in place. Katey ST BSN
[2023-08-07 15:50] VITALS: PULSE 57; RESP 16
[2023-08-07 15:54] VITALS: BP 97/59; PULSE 57; RESP 16; TEMP 36.3; O2SAT 96
[2023-08-07] MEDS: SIMVASTATIN 10 MG TABLET PO (17:27)
[2023-08-07 19:03] VITALS: BP 106/61; PULSE 66; RESP 16; TEMP 36.9; O2SAT 94
[2023-08-07] MEDS: ENOXAPARIN 40 MG/0.4 ML INJ SUBCUT (20:29)
[2023-08-07] MEDS: SENNOSIDES/DOCUSATE TABLET 1 TAB PO (20:29)
--- NOTE | 2023-08-07 22:53 | PC.NURSE ---
Shift note [id number]: Pt noted to be alert & oriented to person and place though has hx of dementia and aphasia. Pt has been afebrile and blood sugar noted to be 173 before supper and 199 at HS. Pt requiring use of ceiling lift for transferring and is not ambulating at this time- remains NWB to RLE. Wound care to RLE to be completed Q48H with last tx completed on day shift today. Dressing to R foot noted to be C/D/I with DIONNE wrap in place and elevation performed. Pt noted to be resistive to elevation at times though education and reapproaching completed. IV to L FA SL. Pt was given PRN Tylenol for pain noted in R foot- 4/10 per faces scale. Pt able to describe pain to R foot as ?boom, boom, boom? and using hand gesture to demonstrate throbbing pain. SCDs worn to BLEs. No further c/o pain noted after PRN Tylenol given. Staff provide repositioning when pt is in bed. Rolled up washcloth placed in R hand for protection to help prevent?potential skin breakdown due to past CVA/weakness to this extremity. Pt continues to take pills whole in applesauce.
[2023-08-08] VITALS (8 sets, daily range): BP systolic 99–123; BP diastolic 52–65; PULSE 60–73; RESP 16–18; TEMP 36.3–36.9; O2SAT 94–99
[2023-08-08] MEDS: ACETAMINOPHEN 325 MG TABLET PO ×2 (01:53→20:19)
[2023-08-08] MEDS: LEVOTHYROXINE 112 MCG TABLET PO (06:00)
--- NOTE | 2023-08-08 06:50 | PC.NURSE ---
End of shift [id number]: Alert to self and place. VSS w/ sats 90% on RA. Reports pain in right leg relieved by PRN Tylenol. Turn and repo q2h. Dressing to right foot c/d/i. Mepilex placed on right outer arm due to broken skin.?Uses call light appropriately. Bed alarm in place.
[2023-08-08 07:19] LABS: Chloride* 103 mmol/L (96-114); Sodium* 134 mmol/L (135-149)
[2023-08-08 07:22] LABS: Anion Gap 11 mEq/L (7-15); Blood Urea Nitrogen* 20 mg/dL (7-30); Carbon Dioxide* 20 mmol/L (20-32); Est. Creatinine Clearance* 61.85; Estimated Glomerular Filt Rate 77 ml/min; Glucose* 171 mg/dL (60-115)
[2023-08-08 07:23] LABS: Calcium* 8.8 mg/dL (8.4-10.6)
[2023-08-08] MEDS: INSULIN ASPART 100 UNIT/ML SUBCUT ×3 (10:19→17:54)
[2023-08-08] MEDS: LACTOBACILLUS ACIDOPHILUS 1 TABLET 1 TAB PO ×2 (10:21→17:54)
[2023-08-08] MEDS: ASPIRIN 81 MG TAB.CHEW PO (10:21)
[2023-08-08] MEDS: SENNOSIDES/DOCUSATE TABLET 1 TAB PO (10:22)
[2023-08-08] MEDS: BACLOFEN 10 MG TABLET 5 MG PO (10:22)
[2023-08-08] MEDS: atenoloL 25 MG TABLET PO (10:23)
[2023-08-08] MEDS: lisinopriL 5 MG TABLET PO (10:23)
[2023-08-08] MEDS: SPIRONOLACTONE 25 MG TABLET PO ×2 (10:23→20:30)
[2023-08-08] MEDS: allopurinoL 100 MG TABLET PO (10:24)
[2023-08-08] MEDS: FUROSEMIDE 40 MG TABLET PO ×2 (10:25→16:29)
[2023-08-08] MEDS: POTASSIUM CHLORIDE 10 MEQ CAPSULE ER 20 MEQ PO ×2 (10:28→17:55)
[2023-08-08] MEDS: METFORMIN ER 500 MG PO ×2 (10:29→17:55)
[2023-08-08] MEDS: SODIUM CHLORIDE 0.9 % (FLUSH) 10 ML SYRINGE 5 ML IVF ×2 (10:30→20:27)
[2023-08-08] MEDS: GABAPENTIN 100 MG CAPSULE 200 MG PO ×2 (11:01→20:27)
--- NOTE | 2023-08-08 12:30 | PM.IMPN1 ---
Progress Note: A&P Assessment and plan (1) Osteomyelitis: Problem details: - s/p 5th metatarsal amputation for osteomyelitis performed by Dr. Chandra 08/03/2023 - Wound cultures growing pansensitive Proteus mirabilis, BCx negative - Dr. Arnold discussed with ID postoperatively, 2 weeks of abx recommended (2g IV Ceftriaxone daily vs Bactrim DS BID), therapy to be completed 08/17/2023 - currently on Bactrim, following renal function - continue to monitor BMP; if remains stable, can d/c to SNF next week with twice weekly basic metabolic monitoring until antibiotics are done - Non weightbearing on right lower extremity, R hemiparesis from prior stroke; will likely need SNF placement with rehab prior to returning to [facility] - postoperative wound care per Podiatry Status: Acute (2) Hypertension: Problem details: - lower BPs throughout stay (120s or less SBP) - continue atenolol, spironolactone at home doses, Lisinopril DECREASED from 20mg -->5mg on 08/06 Status: Chronic (3) Chronic congestive heart failure: Problem details: -continue furosemide, KCl, monitor for fluid overload, appears euvolemic at this time Status: Chronic (4) Type 2 diabetes mellitus: Problem details: -insulin-dependent -most recent A1c 7.3 (July) -hold metformin. Home medication record shows glargine 2 units daily p.r.n. (will need to confirm this) -diabetic diet, glucose checks ACHS, insulin sliding scale Status: Chronic (5) Hypothyroidism: Problem details: -continue levothyroxine, TSH wnl Status: Chronic (6) Hyperlipidemia: Problem details: -continue statin Status: Chronic (7) 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: Problem details: -likely complicating wounds -PT/OT following Status: Chronic (8) Peripheral edema: Problem details: -continue furosemide Status: Chronic Plan - continue Bactrim daily (antibiotics to be continued until August 17), continue to follow renal function - dispo: SNF when bed available Subjective Date Seen: 08/08/23 Interval history: Tucker was admitted on 08/02 for osteomyelitis of his R 5th toe. On 08/03, he had a successful R 5th metatarsal amputation with Dr. Chandra of Podiatry. He is on Bactrim DS at this time - will be on antibiotics until August 17. Had diarrhea early on during stay, this has improved (negative C-diff). BG 161-231, tolerating po intake, also working with therapies. Will require SNF upon discharge. No concerns for hospitalist team today. Exam Narrative: Exam Narrative: GEN: Alert and sitting comfortably in bedside chair, aphasia noted HEENT: Normal external ears, EOMIs bilaterally, no scleral icterus CV: RRR, soft systolic murmur without concerning features R: LCTA bilaterally without concerning wheezing, no tachypnea Ext: Left lower extremity baseline, right foot wrapped Skin: Chronic age-related skin changes of PVD Neuro: Chronic and stable right-sided weakness s/p CVA, baseline Psych: Appropriate, no agitation Const: Vital Signs, click to edit/add: Vital Signs - 24 hr 08/07/23 15:50 08/07/23 15:54 08/07/23 19:03 Temperature 97.4 F L 98.4 F Pulse Rate [Pulse Oximeter] 57 L 57 L 66 Respiratory Rate 16 16 16 Blood Pressure [Le ft Arm] Blood Pressure [Ri ght Arm] 97/59 L 106/61 Pulse Oximetry 96 94 Oxygen Delivery Me thod Room Air Room Air Oxygen Flow Rate 0 08/08/23 00:04 08/08/23 03:03 Temperature 97.4 F L Pulse Rate [Pulse Oximeter] 60 62 Respiratory Rate 18 16 Blood Pressure [Le ft Arm] 114/63 115/65 Blood Pressure [Ri ght Arm] Pulse Oximetry 96 96 Oxygen Delivery Me thod Room Air Room Air Oxygen Flow Rate Labs Labs: Laboratory Results - last 24 hr 08/08/23 05:51 Sodium 134 L Potassium 4.0 Chloride 103 Carbon Dioxide 20 Anion Gap 11 BUN 20 Creatinine 1.0 Estimated Creat Clear 61.85 Estimated GFR 77 Glucose 171 H Calcium 8.8
--- NOTE | 2023-08-08 15:37 | PC.NURSE ---
shift note: vss stable. pt had lg BM. pt up in recliner with ceiling lift for 2 hrs. pt refused lunch. rt l/e drsg c/d/i
[2023-08-08] MEDS: SIMVASTATIN 10 MG TABLET PO (17:55)
[2023-08-08] MEDS: ENOXAPARIN 40 MG/0.4 ML INJ SUBCUT (20:30)
--- NOTE | 2023-08-08 23:08 | PC.NURSE ---
Shift note [id number]: Pt continues to take pills whole in applesauce and continues to require assist of 2 with ceiling lift when transferring in and out of bed. He is not ambulating at this time and remains NWB to RLE. Dressing to R foot wound noted to be C/D/I and secured with DIONNE wrap. Blood sugar of 159 before supper and 221 at HS with pt denying hyperglycemic symptoms when asked. Pt remains alert & oriented to person and place when asked though is only able to give one word answers such as ?yes? and ?no? due to his aphasia caused by past CVA. Skin to R leg noted to be dry with lotion applied. Pt ate 50% of supper. Nonpitting edema to RLE with elevation encouraged and performed. Skin to coccyx sacral area noted to be intact though staff are applying protective cream to this area. ?PRN Tylenol administered for c/o boom, boom throbbing pain to R foot which was effective upon followup. IV to L FA remains patent and SL.
[2023-08-09 02:50] VITALS: BP 103/64; PULSE 67; RESP 16; TEMP 36.4; O2SAT 95
[2023-08-09] MEDS: LEVOTHYROXINE 112 MCG TABLET PO (05:43)
--- NOTE | 2023-08-09 06:24 | PC.NURSE ---
End of shift [id number]: Alert to self and place. VSS w/ sats 90% on RA. Denies pain. Turn and repo q2h. Dressing to right foot c/d/i. Mepilex on right outer arm c/d/i.?Uses call light appropriately. Bed alarm in place.
[2023-08-09 07:00] VITALS: BP 170/58; PULSE 71; RESP 18; TEMP 36.6; O2SAT 95
[2023-08-09 07:30] LABS: Chloride* 103 mmol/L (96-114)
[2023-08-09 07:31] LABS: Potassium* 4.3 mmol/L (3.6-5.1); Sodium* 137 mmol/L (135-149)
[2023-08-09 07:33] LABS: Creatinine* 1.3 mg/dL (0.5-1.5); Est. Creatinine Clearance* 47.57; Estimated Glomerular Filt Rate 56 ml/min
[2023-08-09 07:34] LABS: Anion Gap 13 mEq/L (7-15); Blood Urea Nitrogen* 27 mg/dL (7-30); Calcium* 9.1 mg/dL (8.4-10.6); Carbon Dioxide* 21 mmol/L (20-32); Glucose* 179 mg/dL (60-115)
[2023-08-09] MEDS: POTASSIUM CHLORIDE 10 MEQ CAPSULE ER 20 MEQ PO ×2 (08:10→17:23)
[2023-08-09] MEDS: lisinopriL 5 MG TABLET PO (08:11)
[2023-08-09] MEDS: GABAPENTIN 100 MG CAPSULE 200 MG PO ×2 (08:11→20:31)
[2023-08-09] MEDS: atenoloL 25 MG TABLET PO (08:11)
[2023-08-09] MEDS: SENNOSIDES/DOCUSATE TABLET 1 TAB PO ×2 (08:11→20:31)
[2023-08-09] MEDS: FUROSEMIDE 40 MG TABLET PO ×2 (08:11→15:38)
[2023-08-09] MEDS: METFORMIN ER 500 MG PO ×2 (08:11→17:23)
[2023-08-09] MEDS: LACTOBACILLUS ACIDOPHILUS 1 TABLET 1 TAB PO ×3 (08:11→17:23)
[2023-08-09] MEDS: BACLOFEN 10 MG TABLET 5 MG PO (08:12)
[2023-08-09] MEDS: SPIRONOLACTONE 25 MG TABLET PO ×2 (08:12→20:31)
[2023-08-09] MEDS: allopurinoL 100 MG TABLET PO (08:12)
[2023-08-09] MEDS: ASPIRIN 81 MG TAB.CHEW PO (08:12)
[2023-08-09] MEDS: SODIUM CHLORIDE 0.9 % (FLUSH) 10 ML SYRINGE 5 ML IVF ×2 (08:13→20:31)
[2023-08-09] MEDS: INSULIN ASPART 100 UNIT/ML SUBCUT ×3 (08:16→17:24)
[2023-08-09] MEDS: ACETAMINOPHEN 325 MG TABLET PO ×2 (08:24→19:02)
[2023-08-09] MEDS: cefTRIAXone 2 GM in 0.9 % SODIUM CHLORIDE Mini-bag 100 ML IVPB (10:03)
[2023-08-09 11:00] VITALS: BP 99/57; PULSE 68; RESP 18; TEMP 36.4; O2SAT 93
--- NOTE | 2023-08-09 12:54 | PM.IMPN1 ---
Progress Note: A&P Assessment and plan (1) Osteomyelitis: Problem details: - s/p 5th metatarsal amputation for osteomyelitis performed by Dr. Chandra 08/03/2023 - Wound cultures growing pansensitive Proteus mirabilis, BCx negative - Dr. Arnold discussed with ID postoperatively, 2 weeks of abx recommended (2g IV Ceftriaxone daily vs Bactrim DS BID), therapy to be completed 08/17/2023 - on Bactrim until 08/09 (then transitioned back to IV Rocephin on 08/09 given decrease in renal function) - PICC to be placed on 08/09 for IV Ceftriaxone - postoperative wound care per Podiatry Status: Acute (2) Hypertension: Problem details: - lower BPs throughout stay (120s or less SBP) - continue atenolol, spironolactone at home doses, Lisinopril DECREASED from 20mg -->5mg on 08/06, DISCONTINUED on 08/09 Status: Chronic (3) Chronic congestive heart failure: Problem details: -continue furosemide, KCl, monitor for fluid overload, appears euvolemic at this time Status: Chronic (4) Type 2 diabetes mellitus: Problem details: -insulin-dependent -most recent A1c 7.3 (July) -hold metformin. Home medication record shows glargine 2 units daily p.r.n. 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 On 08/03, he had a successful R 5th metatarsal amputation with Dr. Chandra of Podiatry. Will require antibiotic therapy until 08/17. Had been on Bactrim DS postoperatively with decrease in renal function on 08/09 (will need to transition back to 2g IV Ceftriaxone for therapy from 08/09-1/10) Tolerating po intake, BG 160-220. Working with therapies. Likely d/c to SNF tomorrow. No concerns for hospitalist team today. Exam Narrative: Exam Narrative: GEN: Alert and awake, sitting up in bed, nontoxic CV: RRR, soft systolic murmur without concerning features R: LCTA bilaterally, air movement adequate Ext: R foot is wrapped, exposed toes are wwp with normal ROM Neuro: chronic R sided weakness, s/p CVA Const: Vital Signs, click to edit/add: Vital Signs - 24 hr 08/08/23 15:00 08/08/23 16:31 08/08/23 19:14 Temperature 98.5 F 98.0 F Pulse Rate [Pulse Oximeter] 61 61 73 Respiratory Rate 18 18 16 Blood Pressure [Le ft Arm] 115/65 Blood Pressure [Ri ght Arm] 99/52 L 113/63 Pulse Oximetry 99 94 Oxygen Delivery Me thod Room Air Room Air Oxygen Flow Rate 0 0 08/08/23 23:23 08/09/23 02:50 08/09/23 07:00 Temperature 98.0 F 97.5 F L Pulse Rate [Pulse Oximeter] 67 67 71 Respiratory Rate 18 16 18 Blood Pressure [Le ft Arm] 103/61 103/64 Blood Pressure [Ri ght Arm] Pulse Oximetry 97 95 Oxygen Delivery Me thod Room Air Room Air Oxygen Flow Rate 08/09/23 07:00 08/09/23 11:00 Temperature 97.9 F 97.6 F Pulse Rate [Pulse Oximeter] 71 68 Respiratory Rate 18 18 Blood Pressure [Le ft Arm] 170/58 H 99/57 L Blood Pressure [Ri ght Arm] Pulse Oximetry 95 93 Oxygen Delivery Me thod Room Air Room Air Oxygen Flow Rate Labs Labs: Laboratory Results - last 24 hr 08/09/23 05:50 Sodium 137 Potassium 4.3 Chloride 103 Carbon Dioxide 21 Anion Gap 13 BUN 27 Creatinine 1.3 Estimated Creat Clear 47.57 Estimated GFR 56 Glucose 179 H Calcium 9.1
--- NOTE | 2023-08-09 14:16 | PC.SOCIAL ---
Addendum entered by CHELSEA Haney 08/09/23 14:38: Phone call to pt's [facility] Marketing Automation Specialist, Ivon Reyna, at [phone]. Provided update on discharge plans. Ivon will follow up with [facility]. Original Note: Discharge planning- Pt was accepted for admission to [facility] for 08/10/2023. Pt will transport via non-emergency EMS at 10:00 am. Pt will have PICC line placed this PM per facility request for IV antibiotic management. Facility is requesting same day Covid test, Covid test will be completed at 6:00 am on 08/10/2023. Met with pt and provided update. Phone call to pt's sister, Cherelle, and provided update. Provided pt's sister with contact information for admissions at [facility]. Completed preadmission screening. Confirmation #[id number]. Provided PAS confirmation # to [facility]. Secure e-mailed pt's order for antibiotic to [facility] per facility request. Social work will follow up as needed.
[2023-08-09 15:00] VITALS: BP 122/71; PULSE 67; RESP 18; TEMP 36.3; O2SAT 99
--- NOTE | 2023-08-09 16:16 | CRLHL7_ITS ---
For Patients: As a result of the Century Cures Act, medical imaging exams and procedure reports are released immediately into your electronic medical record. You may view this report before your referring provider. If you have questions, please contact your health care provider. Indication: LT BASILIC PICC PLACEMENT Technique: Grayscale ultrasound images of the left basilic vein and left internal jugular vein. IMPRESSION: Sonographic guidance for left arm PICC line placement. Dictated by Abdelrahman Griffin MD @ 08/10/2023 9:02:44 AM (Electronically Signed)
--- NOTE | 2023-08-09 16:16 | CRLHL7_ITS ---
For Patients: As a result of the Century Cures Act, medical imaging exams and procedure reports are released immediately into your electronic medical record. You may view this report before your referring provider. If you have questions, please contact your health care provider. INDICATION: PICC line placement. TECHNIQUE: Chest 1 views. COMPARISON: November 03, 2020. FINDINGS: Cardiovascular and mediastinum: Cardiomediastinal silhouette is within normal limits. Left approach PICC with distal tip in the lower SVC close to the cavoatrial junction. Lungs and pleural spaces: Hypoinflation of the lungs. Perihilar interstitial opacities. No sign of pleural effusion. No pneumothorax. Bones and soft tissues: Diffuse demineralization of visualized bones. Bilateral shoulder degenerative changes. Otherwise, unremarkable for age.. IMPRESSION: No acute cardiopulmonary process identified. Dictated by Belle Cantu MD @ 08/09/2023 6:35:59 PM (Electronically Signed)
[2023-08-09] MEDS: SIMVASTATIN 10 MG TABLET PO (17:23)
--- NOTE | 2023-08-09 18:04 | PC.NURSE ---
End of shift [id number]: Pt A&O x2, afebrile and VSS. Required Katherine lift for transfers from bed to chair. PT utilized EZ stand x1 transfer with a block under pt?s right foot but would recommend nursing to continue with Katherine lift. Pt had x2 loose BM?s today. Decreased appetite r/t no teeth to chew food. C/o right should pain this morning which was relieved with x1 dose PRN Tylenol @ 0825. Blood sugars: 214 ?> 155 > 192?respectively; see MAR for insulin dosing. Right foot dressing changed today; incision closed with sutures intact. Right lateral arm Mepilex remains in place for skin tear, C/D/I. Pt takes meds whole with applesauce. Started IV Rocephin q24H and Lovenox today. Pt was up in the chair from [id number]. PICC line placed in E. PIV 20G in left wrist discontinued. Discharge planned for tomorrow 08/10 @ 1000 to [facility], pt will need COVID swab in early AM. ?
[2023-08-09 20:20] VITALS: BP 107/63; PULSE 71; RESP 18; TEMP 36.5; O2SAT 96
[2023-08-09] MEDS: ENOXAPARIN 30 MG/0.3ML INJ SUBCUT (20:31)
[2023-08-09 22:30] VITALS: BP 105/79; PULSE 71; PULSE 76; RESP 16; RESP 18; TEMP 36.6; O2SAT 95
[2023-08-10 02:41] VITALS: BP 98/61; PULSE 64; RESP 18; TEMP 36.6; O2SAT 95
[2023-08-10] MEDS: LEVOTHYROXINE 112 MCG TABLET PO (05:38)
[2023-08-10] MEDS: SODIUM CHLORIDE 0.9 % (FLUSH) 10 ML SYRINGE 5 ML IVF ×3 (05:38→09:15)
[2023-08-10 06:05] LABS: SARS PCR* Negative SARS-CoV-2 (Negative)
[2023-08-10 06:39] LABS: Chloride* 103 mmol/L (96-114); Sodium* 134 mmol/L (135-149)
[2023-08-10 06:40] LABS: Potassium* 4.2 mmol/L (3.6-5.1)
[2023-08-10 06:42] LABS: Anion Gap 11 mEq/L (7-15); Carbon Dioxide* 20 mmol/L (20-32); Creatinine* 1.3 mg/dL (0.5-1.5); Est. Creatinine Clearance* 47.57; Estimated Glomerular Filt Rate 56 ml/min
[2023-08-10 06:43] LABS: Blood Urea Nitrogen* 33 mg/dL (7-30); Calcium* 8.8 mg/dL (8.4-10.6); Glucose* 219 mg/dL (60-115)
[2023-08-10 07:00] VITALS: BP 119/59; PULSE 75; RESP 16; TEMP 36.6; O2SAT 92
[2023-08-10] MEDS: POTASSIUM CHLORIDE 10 MEQ CAPSULE ER 20 MEQ PO (07:51)
[2023-08-10] MEDS: METFORMIN ER 500 MG PO (07:51)
[2023-08-10] MEDS: LACTOBACILLUS ACIDOPHILUS 1 TABLET 1 TAB PO (07:51)
[2023-08-10] MEDS: BACLOFEN 10 MG TABLET 5 MG PO (07:51)
[2023-08-10] MEDS: ASPIRIN 81 MG TAB.CHEW PO (07:52)
[2023-08-10] MEDS: ACETAMINOPHEN 325 MG TABLET PO (07:52)
[2023-08-10] MEDS: atenoloL 25 MG TABLET PO (07:52)
[2023-08-10] MEDS: allopurinoL 100 MG TABLET PO (07:52)
[2023-08-10] MEDS: SENNOSIDES/DOCUSATE TABLET 1 TAB PO (07:53)
[2023-08-10] MEDS: SPIRONOLACTONE 25 MG TABLET PO (07:53)
[2023-08-10] MEDS: GABAPENTIN 100 MG CAPSULE 200 MG PO (07:53)
[2023-08-10] MEDS: FUROSEMIDE 40 MG TABLET PO (07:54)
[2023-08-10] MEDS: INSULIN ASPART 100 UNIT/ML SUBCUT (07:55)
--- NOTE | 2023-08-10 07:56 | PC.NURSE ---
Pt alert and oriented to name and place. Afebrile. Pt reported 7/10 pain in lower back, managed with PRN medications. Pt is up SBA with walker and gait belt. Pt's otto is patent and draining. Pt slept throughout most of night.
--- NOTE | 2023-08-10 08:11 | PC.NURSE ---
Pt is oriented to self only. Pleasant and cooperative. Pt reports Some pain in right foot, pain managed with scheduled medications. Pt was turned and repositioned throughout night. Pt slept throughout most of night.
[2023-08-10] MEDS: cefTRIAXone 2 GM in 0.9 % SODIUM CHLORIDE Mini-bag 100 ML IVPB (09:12)
--- NOTE | 2023-08-10 09:13 | P.DS_ITS ---
DS: Providers Provider Date Seen: 08/10/23 Date of admission: 08/02/23 21:28 Primary care physician: Not a Local Provider Admitting Clinician: Jennifer Corona MD Consults: Podiatry, OT, PT, SW Attending Physician on discharge: Ramona Powell MD Date of Discharge: 08/10/23 DS: Diagnosis Discharge Diagnosis (1) Osteomyelitis: Status: Acute Problem details: - s/p 5th metatarsal amputation for osteomyelitis performed by Dr. Chandra 08/03/2023 - Wound cultures growing pansensitive Proteus mirabilis, BCx negative - Dr. Arnold discussed with ID postoperatively, 2 weeks of abx recommended (2g IV Ceftriaxone daily vs Bactrim DS BID), therapy to be completed 08/17/2023 - on Bactrim until 08/09 (then transitioned back to IV Rocephin on 08/09 given decrease in renal function) - PICC placed on 08/09 for IV Ceftriaxone, to be continued until 08/17/23 - QOD dry dressing changes per Podiatry (2) Abdominal tenderness: Status: Acute Problem details: - in ED, resolved after admission, labs and exam reassuring during stay, tolerated po intake without any concerns - CT abdomen is unremarkable except for presence of gallstones without obvious cholecystitis, continue to follow (3) Cognitive impairment: Status: Chronic Problem details: - in addition to some speech problems with word finding, patient appears to have moderate dementia, no agitation (4) 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 Home medication record shows glargine 2 units daily p.r.n. (will need to confirm this) -diabetic diet, glucose checks ACHS, insulin sliding scale (8) Hypertension: Status: Chronic Problem details: - lower BPs throughout stay (120s or less SBP) - continue atenolol, spironolactone at home doses, Lisinopril DECREASED from 20mg -->5mg on 12/30, DISCONTINUED on 08/09 DS: Summary Hospital Course Hospital Course: Tucker was admitted to the hospital on 08/02 for R 5th toe osteomyelitis, had an amputation with Dr. Chandra on 08/03. Postoperatively, will require abx until 08/17/23 (per discussion with ID, details above). Patient also noted abdominal pain in the ED, resolved completely during stay, tolerating po intake. Comorbidities with details noted above. Patient seen by therapies, SNF recommended upon d/c with eventual return to [facility]. Given decreased kidney function, + diuresis and low blood pressures, the following medication changes were made upon discharge: STOP LISINOPRIL. DECREASE LASIX, SPIRONOLACTONE, and POTASSIUM to once/day from twice/day. Recheck BMP on Tuesday, 08/12. Last Creatinine was 1.3 on 08/10/23. Continue IV Rocephin 2g daily (last dose on 08/17/23). Status at Discharge Cognitive/behavioral status at discharge: Baseline Functional status at discharge: uses cane/walker Overall status at discharge: patient is progressing back to baseline Time Spent with Patient Time attestation: Total time spent providing and/or coordinating discharge services: Time spent: Greater than 30 minutes Specific discharge activities: Medication reconciliation, patient education Exam Narrative: Exam Narrative: GEN: Alert, baseline word-finding difficulties, nontoxic HEENT: EOMIs bilaterally, no scleral icterus CV: RRR, No concerning murmurs, rubs, or gallops R: LCTA bilaterally without concerning wheezing, rales, or rhonchi Ext: Edema from admission has improved, R foot wrapped Neuro: R sided weakness, baseline/unchanged Psych: Appropriate for chronic conditions, no agitation Const: Vital Signs, click to edit/add: Vital Signs - 24 hr 08/09/23 11:00 08/09/23 15:00 08/09/23 15:00 Temperature 97.6 F 97.4 F L Pulse Rate [Pulse Oximeter] 68 67 67 Respiratory Rate 18 18 18 Blood Pressure [Le ft Arm] 99/57 L 122/71 Blood Pressure [Ri ght Arm] Pulse Oximetry 93 99 Oxygen Delivery Me thod Room Air Room Air 08/09/23 20:20 08/09/23 22:30 08/09/23 22:30 Temperature 97.7 F 97.9 F Pulse Rate [Pulse Oximeter] 71 71 76 Respiratory Rate 18 16 18 Blood Pressure [Le ft Arm] Blood Pressure [Ri ght Arm] 107/63 105/79 Pulse Oximetry 96 95 Oxygen Delivery Me thod Room Air Room Air 08/10/23 02:41 Temperature 97.8 F Pulse Rate [Pulse Oximeter] 64 Respiratory Rate 18 Blood Pressure [Le ft Arm] Blood Pressure [Ri ght Arm] 98/61 Pulse Oximetry 95 Oxygen Delivery Me thod Room Air DS: Data Data Completed and Pending Labs on day of discharge: Labs from last 24 hours 08/10/23 08/10/23 05:45 05:20 Sodium 134 L Potassium 4.2 Chloride 103 Carbon Dioxide 20 Anion Gap 11 BUN 33 H Creatinine 1.3 Estimated Creat Clear 47.57 Estimated GFR 56 Glucose 219 H Calcium 8.8 SARS-CoV-2 (PCR) Negative SARS-CoV-2 Preliminary micro results at discharge 08/03/23 17:57 Anaerobic Culture - Preliminary Foot Right Discharge Plan Discharge Disposition: [facility] Date of Admission: 08/02/23 21:28 Attending Provider on Discharge: Ramona Powell Consulting Providers: Bobo Chandra Primary Care Provider: Provider,Not a Local Condition: Stable Anticipated Discharge Date/Time: 08/10/23 08:04 Discharge Medications: New acetaminophen 325 mg Tablet 975 mg PO Q8H PRNQty: 30 0RF ceftriaxone 2 gram Recon Soln 2 g IVPB Q24H 7 Days Qty: 10 0RF Lactobacillus acidophilus 0.5 mg (100 million cell) Tablet 1 mmu cells PO TIDWM 7 Days Qty: 21 0RF furosemide 40 mg Tablet 40 mg PO DAILY Qty: 30 0RF Rx Instructions: please note dose decrease potassium chloride 10 mEq Capsule, Extended Release 20 meq PO DAILY Qty: 30 0RF spironolactone 25 mg Tablet 25 mg PO DAILY Qty: 30 0RF Continued simvastatin 10 mg tablet 10 mg PO QPM atenolol 25 mg tablet 25 mg PO DAILY allopurinol 100 mg tablet 100 mg PO DAILY acetaminophen 500 mg tablet PO hydrocortisone 1 % cream topical aspirin 81 mg tablet,chewable 1 tab PO DAILY gabapentin 100 mg capsule 200 mg PO BID metformin 500 mg tablet extended release 24 hr 500 mg PO BID levothyroxine 112 mcg tablet 112 mcg PO DAILY insulin glargine [Lantus Solostar U-100 Insulin] 100 unit/mL (3 mL) insulin pen 2 unit subcut DAILY PRN MediHoney (honey) 80 % gel topical DIRECTED baclofen 5 mg tablet 5 mg PO DAILY Discontinued lisinopril 20 mg tablet 20 mg PO DAILY spironolactone 25 mg tablet 25 mg PO BID potassium chloride 20 mEq tablet,ER particles/crystals 20 meq PO BID furosemide 20 mg tablet 40 mg PO BID No Action (DME) OneTouch Ultra Test Strip 2 strip MISCELLANEOUS BID (DME) Curity Non-Adhering Dressing 3 X 3 bandage topical (DME) lancets [Unistik 3 Comfort Lancet] 28 gauge misc MISCELLANEOUS Patient Comments: [NO ORIGINAL SIG] (DME) Kerlix AMD 0.2 %- 4.5 X 4.1 yard bandage topical Discharge Orders: Discharge Order (Routine); Ordered 08/10/23 Ordered By: Ramona Powell Additional Instructions: Given decreased kidney function, + diuresis and low blood pressures, the following medication changes were made: STOP LISINOPRIL. DECREASE LASIX, SPIRONOLACTONE, and POTASSIUM to once/day from twice/day. Recheck BMP on Tuesday, 08/12. Last Creatinine was 1.3 on 08/10/23. Continue IV Rocephin 2g daily (last dose on 08/17/23). Activity Level: Activity as Tolerated Activity Detail: per therapies Discharge Diet: Diabetic Follow Up Appointments: Provider,Not a Local [Primary Care Provider[facility] - [facility] Wound Care: Dry dressing change every other day with 4x4 gauze, Kerlix roll, Giuseppe wrap. Make sure the dorsal foot and ankle are WELL PADDED to prevent new wounds. Admit to: SNF Discharge Potential: Fair Length of Stay: 30-90 days Can use facility standing orders?: Yes Code Status: DNR/DNI TEDs: N/A Rehab Potential: Fair Therapy: Physical Therapy and Occupational Therapy Therapy Orders: Evaluate and Treat and Gait Training Oxygen: No Urinary Catheter: No Glucose Checks: BID Next INR: n/a Lab Orders: BMP on Tuesday, 08/12 Orders are good >30 days: Yes Signature: Ramona Powell MD
--- NOTE | 2023-08-10 09:39 | PC.NURSE ---
Nurse spoke with Brendan from [facility] and provided nurse-nurse report on patient's medical condition and discharge assessment. All of Brendan's questions were answered appropriately and he verbalized understanding. Discharge planned for 1000 via non-emergent EMS transfer.
--- NOTE | 2023-08-10 11:05 | PC.NURSE ---
Pt A&O to self and place (he knows he?s in the hospital). VSS this morning. Blood sugar before breakfast: 221; received 2 units Novolog. Pt had c/o right shoulder pain so PRN Tylenol given @ 0750. LUE PICC C/D/I and patent; received 2g IV Rocephin without issue. Right foot dressing C/D/I. Right outer arm Mepilex C/D/I. Pt TR q2H and as he requests for comfort. [facility] updated with discharge info & nurse-nurse report. Pt Ax2 to get dressed and washed up. EMS transferred pt to [facility] @ 1045 via non-emergent transfer. ?
[2023-08-10 11:07] VITALS: BP 119/59; PULSE 75; RESP 16; TEMP 36.6
== END 2023-08-10 10:45 | DRG 475 ==
LOC: ED 20:03 → MEDSURG 20:50
PROVIDERS: Family Medicine; Podiatrist; Admitting Provider Physician Assistant; Emergency Provider Student in an Organized Health Care Education/Training Program; Visit Provider Family Medicine
PROC: 0Y6M0ZF Detachment at Right Foot, Partial 5th Ray, Open Approach (ICD-10-PCS; 2023-08-03 17:00)
DX: M86.171 Other acute osteomyelitis, right ankle and foot (principal); I69.351 Hemiplegia and hemiparesis following cerebral infarction affecting right dominant side; E11.69 Type 2 diabetes mellitus with other specified complication; E11.621 Type 2 diabetes mellitus with foot ulcer; L97.514 Non-pressure chronic ulcer of other part of right foot with necrosis of bone; B96.4 Proteus (mirabilis) (morganii) as the cause of diseases classified elsewhere; Z79.4 Long term (current) use of insulin; Z79.84 Long term (current) use of oral hypoglycemic drugs; F03.B0 Unspecified dementia, moderate, without behavioral disturbance, psychotic disturbance, mood disturbance, and anxiety; I69.320 Aphasia following cerebral infarction; R10.819 Abdominal tenderness, unspecified site; K80.20 Calculus of gallbladder without cholecystitis without obstruction; I11.0 Hypertensive heart disease with heart failure; I50.9 Heart failure, unspecified; R60.9 Edema, unspecified; E03.9 Hypothyroidism, unspecified; E78.5 Hyperlipidemia, unspecified
CPT/HCPCS: 01480; 36415; 36573; 36589; 73620; 74177; 80048; 80053; 81001; 82962; 83605; 83735; 84443; 85025; 85610; 85651; 86140; 87040; 87070; 87075; 87076; 87081; 87181; 87186; 87205; 87493; 87631; 87635; 88304; 88311; 93005; 97110; 97162; 97165; 97530; 97535; 99140; 99284; 99285; G0378; A9270; C1751; J0665; J0696; J1650; J2543; J2704; J3370; J7050; J7120; Q9967

== ENCOUNTER 2023-08-10 10:38 | Outpatient (CLI) | payer OTHER, SELFPAY | END 2023-08-10 10:39 | disposition home or self-care (01) | LOC: AMB 08-14 07:27 | PROVIDERS: Visit Provider Family Medicine | DX: I69.351 Hemiplegia and hemiparesis following cerebral infarction affecting right dominant side (principal) | CPT/HCPCS: A0425; A0428 ==

== ENCOUNTER 2024-02-15 13:53 | Outpatient (REF) | payer OTHER, SELFPAY ==
[2024-02-15 14:30] LABS: Basophils Absolute Auto 0.05 K/uL (0.00-0.30); Basophils Percent Auto 0.6 % (0.0-3.0); Eosinophils Absolute Auto 0.25 K/uL (0.00-0.50); Eosinophils Percent Auto 2.9 % (0.0-7.0); Hematocrit 33.6 % (37.0-53.0); Hemoglobin* 10.9 gm/dL (13.5-17.5); Immature Granulocytes Abs Auto 0.01 K/uL (0.00-0.30); Immature Granulocytes Pct Auto 0.1 %; Lymphocytes Absolute Auto 2.47 K/uL (0.90-2.90); Lymphocytes Percent Auto 28.6 % (20-44); Mean Corpuscular HGB Conc 32 gm/dL (32-36); Mean Corpuscular Hemoglobin 27 pg (26-34); Mean Corpuscular Volume 83 fL (80-100); Monocytes Percent Auto 6.8 % (0.0-11.0); Neutrophils Absolute Auto 5.26 K/uL (1.7-7.0); Platelet Count* 329 K/uL (140-440); RDW Coefficient of Variation % 14.7 % (11.5-15.5); Red Blood Count 4.03 m/uL (4.30-5.90); White Blood Count* 8.63 K/uL (4.50-11.00)
[2024-02-15 14:38] LABS: Slide Review Reflex No
[2024-02-15 16:13] LABS: Chloride* 102 mmol/L (96-114); Sodium* 135 mmol/L (135-149)
[2024-02-15 16:16] LABS: Anion Gap 6 mEq/L (7-15); Carbon Dioxide* 27 mmol/L (20-32); Creatinine* 0.5 mg/dL (0.5-1.5); Estimated Glomerular Filt Rate 103 ml/min
[2024-02-15 16:17] LABS: Blood Urea Nitrogen* 12 mg/dL (7-30); Calcium* 8.9 mg/dL (8.4-10.6); Glucose* 132 mg/dL (60-115)
[2024-02-15 19:38] LABS: Thyroid Stimulating Hormone* 0.907 uIU/mL (0.270-4.20)
== END 2024-02-15 13:54 | disposition home or self-care (01) ==
LOC: NPINS 13:53
PROVIDERS: Visit Provider Nurse Practitioner Gerontology
DX: R53.83 Other fatigue (principal); I11.0 Hypertensive heart disease with heart failure; I50.9 Heart failure, unspecified; E03.9 Hypothyroidism, unspecified; E11.9 Type 2 diabetes mellitus without complications
CPT/HCPCS: 80048; 84443; 85025